=== PATIENT | female | born 1960 | race Caucasian/White ===

== ENCOUNTER → 2016-03-18 | Outpatient (REF) | payer BC | LOC: M LAB REF 08:45 | PROVIDERS: ATTEND Family Medicine | DX: K52.9 Noninfective gastroenteritis and colitis, unspecified (principal) ==

== ENCOUNTER → 2017-02-11 | Outpatient (CLI) | payer BC ==
[2017-02-11 07:16] LABS: MEAN CORPUSCULAR HEMOGLOBIN 32.1 pg (27.0-33.0); MEAN CORPUSCULAR HGB CONC 33.2 g/dl (32.0-36.5); MEAN CORPUSCULAR VOLUME 96.9 fl (80.0-96.0); PLATELET COUNT, AUTOMATED 227 10^3/uL (150-450); RED CELL DISTRIBUTION WIDTH 12.4 % (11.5-14.5); WHITE BLOOD COUNT 4.5 10^3/uL (4.0-10.0)
[2017-02-11 07:48] LABS: ALBUMIN 3.9 GM/DL (3.2-5.2); ANION GAP 6 MEQ/L (8-16); BLOOD UREA NITROGEN 9 MG/DL (7-18); CALCIUM LEVEL 8.6 MG/DL (8.5-10.1); CARBON DIOXIDE LEVEL 31 MEQ/L (21-32); CHLORIDE LEVEL 105 MEQ/L (98-107); CREATININE FOR GFR 0.65 MG/DL (0.55-1.02); GLOMERULAR FILTRATION RATE > 60.0 (>51); GLUCOSE, FASTING 92 MG/DL (70-105); MAGNESIUM LEVEL 2.2 MG/DL (1.8-2.4); PHOSPHORUS LEVEL 4.1 MG/DL (2.5-4.9); POTASSIUM SERUM 3.8 MEQ/L (3.5-5.1); SODIUM LEVEL 142 MEQ/L (136-145)
== END ==
LOC: M LAB 06:41
PROVIDERS: ATTEND Physician Assistant
DX: R00.2 Palpitations (principal)

== ENCOUNTER → 2017-04-13 | Outpatient (REF) | payer BC | LOC: M LAB REF 15:51 | DX: Z11.8 Encounter for screening for other infectious and parasitic diseases (principal) | CPT/HCPCS: 87493 ==

== ENCOUNTER → 2017-08-11 | Outpatient (CLI) | payer BC ==
[2017-08-11 06:56] LABS: HEMATOCRIT 39.2 % (36.0-47.0); HEMOGLOBIN 13.3 g/dl (12.0-15.5); MEAN CORPUSCULAR HEMOGLOBIN 31.8 pg (27.0-33.0); MEAN CORPUSCULAR HGB CONC 33.9 g/dl (32.0-36.5); MEAN CORPUSCULAR VOLUME 93.8 fl (80.0-96.0); PLATELET COUNT, AUTOMATED 217 10^3/uL (150-450); RED BLOOD COUNT 4.18 10^6/uL (4.00-5.40); RED CELL DISTRIBUTION WIDTH 12.5 % (11.5-14.5); WHITE BLOOD COUNT 4.8 10^3/uL (4.0-10.0)
[2017-08-11 07:29] LABS: ALBUMIN 3.8 GM/DL (3.2-5.2); ALBUMIN/GLOBULIN RATIO 1.27 (1.00-1.93); ALKALINE PHOSPHATASE 80 U/L (45-117); ALT/SGPT 19 U/L (12-78); ANION GAP 8 MEQ/L (8-16); AST/SGOT 10 U/L (7-37); BILIRUBIN,TOTAL 0.3 MG/DL (0.2-1.0); BLOOD UREA NITROGEN 12 MG/DL (7-18); CALCIUM LEVEL 8.9 MG/DL (8.5-10.1); CARBON DIOXIDE LEVEL 28 MEQ/L (21-32); CHLORIDE LEVEL 108 MEQ/L (98-107); CHOLESTEROL LEVEL 220 MG/DL (<200); CHOLESTEROL RISK RATIO 3.055 (<5); CREATININE FOR GFR 0.79 MG/DL (0.55-1.30); GLOMERULAR FILTRATION RATE > 60.0 (>51); GLUCOSE, FASTING 94 MG/DL (70-100); HDL CHOLESTEROL 72 MG/DL (>40); IRON (FE) 84 UG/DL (50-170); NON-HDL-C 148 MG/DL; PERCENT SATURATION 22.5 % (13.2-45.0); POTASSIUM SERUM 4.1 MEQ/L (3.5-5.1); RHEUMATOID FACTOR QUANT < 10.0 IU/ML (<15.0); SODIUM LEVEL 144 MEQ/L (136-145); TOTAL IRON BINDING CAPACITY 373 UG/DL (250-450); TOTAL PROTEIN 6.8 GM/DL (6.4-8.2); TRIGLYCERIDES LEVEL 130 MG/DL (<150); URIC ACID 4.1 MG/DL (2.6-6.0)
[2017-08-11 07:39] LABS: ERYTHROCYTE SEDIMENTATION RATE 11 mm/hr (0-30)
[2017-08-11 10:05] LABS: VITAMIN B12 LEVEL 294 PG/ML (247-911)
== END ==
LOC: M LAB 06:04
DX: R94.31 Abnormal electrocardiogram [ECG] [EKG] (principal); R53.83 Other fatigue; D64.9 Anemia, unspecified; M85.9 Disorder of bone density and structure, unspecified
CPT/HCPCS: 71046

== ENCOUNTER → 2017-10-12 | Outpatient (CLI) | payer BC ==
[2017-10-12 07:20] LABS: THYROXINE (T4) 8.3 UG/DL (4.5-12.0)
[2017-10-12 09:36] LABS: TOTAL 25(OH) VITAMIN D 69.1 NG/ML (30.0-100.0)
[2017-10-12 09:37] LABS: ESTRADIOL < 19.0 PG/ML
[2017-10-12 09:37] LABS: FOLLICLE STIMULATING HORMONE 136.7 mIU/mL; TOTAL T3 111.6 NG/DL (60.0-181.0)
[2017-10-12 10:15] LABS: VITAMIN B12 LEVEL 342 PG/ML (247-911)
== END ==
LOC: M LAB 06:12
DX: R53.83 Other fatigue (principal)

== ENCOUNTER → 2017-10-19 | Outpatient (CLI) | payer BC | LOC: M RAD 07:21 | DX: Z12.31 Encounter for screening mammogram for malignant neoplasm of breast (principal) | CPT/HCPCS: 77067 ==

== ENCOUNTER → 2018-04-13 | Outpatient (CLI) | payer BC ==
[2018-04-13 06:36] LABS: HEMATOCRIT 41.4 % (36.0-47.0); HEMOGLOBIN 13.9 g/dl (12.0-15.5); MEAN CORPUSCULAR HEMOGLOBIN 31.7 pg (27.0-33.0); MEAN CORPUSCULAR HGB CONC 33.6 g/dl (32.0-36.5); MEAN CORPUSCULAR VOLUME 94.5 fl (80.0-96.0); PLATELET COUNT, AUTOMATED 238 10^3/uL (150-450); RED BLOOD COUNT 4.38 10^6/uL (4.00-5.40); WHITE BLOOD COUNT 4.7 10^3/uL (4.0-10.0)
[2018-04-13 06:59] LABS: ERYTHROCYTE SEDIMENTATION RATE 11 mm/hr (0-30)
[2018-04-13 07:07] LABS: ALT/SGPT 19 U/L (12-78); BILIRUBIN,TOTAL 0.6 MG/DL (0.2-1.0); BLOOD UREA NITROGEN 11 MG/DL (7-18); CALCIUM LEVEL 9.1 MG/DL (8.5-10.1); CARBON DIOXIDE LEVEL 29 MEQ/L (21-32); CHLORIDE LEVEL 106 MEQ/L (98-107); CHOLESTEROL LEVEL 226 MG/DL (<200); CREATININE FOR GFR 0.73 MG/DL (0.55-1.30); GLOMERULAR FILTRATION RATE > 60.0 (>51); GLUCOSE, FASTING 98 MG/DL (70-100); POTASSIUM SERUM 4.1 MEQ/L (3.5-5.1); SODIUM LEVEL 141 MEQ/L (136-145); TRIGLYCERIDES LEVEL 113 MG/DL (<150)
[2018-04-13 07:08] LABS: ALBUMIN 3.9 GM/DL (3.2-5.2); CHOLESTEROL RISK RATIO 3.275 (<5); HDL CHOLESTEROL 69 MG/DL (>40); IRON (FE) 125 UG/DL (50-170); LDL CHOLESTEROL 134 MG/DL (<100); NON-HDL-C 157 MG/DL; PERCENT SATURATION 34.1 % (13.2-45.0); THYROXINE (T4) 9.4 UG/DL (4.5-12.0); TOTAL IRON BINDING CAPACITY 367 UG/DL (250-450); TOTAL PROTEIN 6.6 GM/DL (6.4-8.2)
[2018-04-13 09:41] LABS: TOTAL 25(OH) VITAMIN D 42.6 NG/ML (30.0-100.0)
[2018-04-13 12:16] LABS: VITAMIN B12 LEVEL 355 PG/ML (247-911)
== END ==
LOC: M LAB 06:06
PROVIDERS: ATTEND Family Medicine
DX: D64.9 Anemia, unspecified (principal); R53.83 Other fatigue; E03.9 Hypothyroidism, unspecified

== ENCOUNTER → 2018-07-20 | Outpatient (REF) | payer BC ==
[~2018-07-20] MED LIST: FLON1SPR; PROBCAP14 PO
== END ==
LOC: M SFHCPLAZ 17:31
PROVIDERS: ATTEND Dermatology
DX: D48.5 Neoplasm of uncertain behavior of skin (principal)

== ENCOUNTER → 2018-11-03 | Outpatient (CLI) | payer BC ==
[2018-11-03 07:05] LABS: HEMATOCRIT 41.2 % (36.0-47.0); HEMOGLOBIN 13.6 g/dl (12.0-15.5); MEAN CORPUSCULAR HEMOGLOBIN 31.6 pg (27.0-33.0); MEAN CORPUSCULAR VOLUME 95.6 fl (80.0-96.0); PLATELET COUNT, AUTOMATED 198 10^3/uL (150-450); RED BLOOD COUNT 4.31 10^6/uL (4.00-5.40); WHITE BLOOD COUNT 4.3 10^3/uL (4.0-10.0)
[2018-11-03 07:36] LABS: ALBUMIN 3.9 GM/DL (3.2-5.2); ALT/SGPT 19 U/L (12-78); BILIRUBIN,TOTAL 0.3 MG/DL (0.2-1.0); BLOOD UREA NITROGEN 11 MG/DL (7-18); CARBON DIOXIDE LEVEL 30 MEQ/L (21-32); CHLORIDE LEVEL 109 MEQ/L (98-107); CHOLESTEROL LEVEL 199 MG/DL (<200); CHOLESTEROL RISK RATIO 2.842 (<5); CREATININE FOR GFR 0.68 MG/DL (0.55-1.30); GLOMERULAR FILTRATION RATE > 60.0 (>51); GLUCOSE, FASTING 99 MG/DL (70-100); HDL CHOLESTEROL 70 MG/DL (>40); IRON (FE) 76 UG/DL (50-170); LDL CHOLESTEROL 110 MG/DL (<100); NON-HDL-C 129 MG/DL; PERCENT SATURATION 21.2 % (13.2-45.0); RHEUMATOID FACTOR QUANT < 10.0 IU/ML (<15.0); SODIUM LEVEL 144 MEQ/L (136-145); TOTAL IRON BINDING CAPACITY 358 UG/DL (250-450); TOTAL PROTEIN 6.8 GM/DL (6.4-8.2); TRIGLYCERIDES LEVEL 96 MG/DL (<150)
[2018-11-03 08:30] LABS: LUTEINIZING HORMONE 54.6 mIU/mL; TOTAL 25(OH) VITAMIN D 43.4 NG/ML (30.0-100.0); TOTAL T3 114.5 NG/DL (60.0-181.0)
[2018-11-03 08:31] LABS: ESTRADIOL < 19.0 PG/ML; VITAMIN B12 LEVEL 226 PG/ML (247-911)
[2018-11-03 08:56] LABS: ERYTHROCYTE SEDIMENTATION RATE 10 mm/hr (0-30)
[2018-11-03 11:33] LABS: FOLLICLE STIMULATING HORMONE 112.7 mIU/mL
== END ==
LOC: M LAB 06:25
PROVIDERS: ATTEND Family Medicine
DX: D64.9 Anemia, unspecified (principal); R53.83 Other fatigue

== ENCOUNTER → 2018-11-08 | Outpatient (CLI) | payer BC ==
--- NOTE | 2018-11-08 17:51 | REPMRS ---
Patient History The patient states she had a clinical breast exam in June 2018. Family history of breast cancer at age 68 in mother, colorectal cancer at age 50 or over in father. Benign radio exam breast specimen of the left breast, February 06, 2014. Benign stereotatic loc for ea lesion of the left breast, February 06, 2014. 3D TOMOSYNTHESIS WAS PERFORMED. [facility] lifetime risk for breast cancer is 15.1%. Digital Mammo Screening Bilat: November 08, 2018 - Exam #: [id number] Bilateral CC and MLO view(s) were taken. Technologist: Jazmine Doll, Technologist Prior study comparison: October 19, 2017, bilateral digital mammo screening bilat performed at [facility]. September 04, 2014, left breast digital mammo diagnostic unilateral performed at [facility]. FINDINGS: The breast tissue is heterogeneously dense. This may lower the sensitivity of mammography. There has been no change in the appearance of the mammogram from the prior studies. There is a moderate amount of residual fibroglandular tissue which is fairly symmetric. There is no interval development of dominant mass, areas of architectural distortion, or clustered microcalcification typical of malignancy. Assessment: BI-RADS/ACR category 1 mammogram. Negative Mammogram. Recommendation Routine screening mammogram in 1 year (for women over age 40). This mammogram was interpreted with the aid of an FDA-approved computer-aided dectection system. Electronically Signed By: Patrick Hart MD 11/08/18 [id number]
== END ==
LOC: M RAD 16:08
PROVIDERS: ATTEND Family Medicine
DX: Z12.31 Encounter for screening mammogram for malignant neoplasm of breast (principal)

== ENCOUNTER → 2019-08-01 | Outpatient (REF) | payer BC | LOC: M LAB REF 17:42 | PROVIDERS: ATTEND Dermatology | DX: D49.2 Neoplasm of unspecified behavior of bone, soft tissue, and skin (principal) ==

== ENCOUNTER → 2019-09-24 | Outpatient (CLI) | payer BC ==
[2019-10-28 21:14] LABS: HEMATOCRIT 39.3 % (36.0-47.0); HEMOGLOBIN 12.9 g/dl (12.0-15.5); MEAN CORPUSCULAR HEMOGLOBIN 31.9 pg (27.0-33.0); MEAN CORPUSCULAR HGB CONC 32.8 g/dl (32.0-36.5); MEAN CORPUSCULAR VOLUME 97.3 fl (80.0-96.0); PLATELET COUNT, AUTOMATED 181 10^3/uL (150-450); RED BLOOD COUNT 4.04 10^6/uL (4.00-5.40); WHITE BLOOD COUNT 2.9 10^3/uL (4.0-10.0)
[2019-10-28 21:26] LABS: ERYTHROCYTE SEDIMENTATION RATE 11 mm/hr (0-30)
[2019-10-29 19:19] LABS: HEMOGLOBIN A1c 5.4 %
[2019-10-29 19:20] LABS: ALBUMIN 3.7 GM/DL (3.2-5.2); ALT/SGPT 22 U/L (12-78); BILIRUBIN,TOTAL 0.4 MG/DL (0.2-1.0); BLOOD UREA NITROGEN 10 MG/DL (7-18); CALCIUM LEVEL 8.8 MG/DL (8.5-10.1); CARBON DIOXIDE LEVEL 31 MEQ/L (21-32); CHLORIDE LEVEL 110 MEQ/L (98-107); CHOLESTEROL LEVEL 221 MG/DL (<200); CHOLESTEROL RISK RATIO 2.907 (<5); CREATININE FOR GFR 0.73 MG/DL (0.55-1.30); GLOMERULAR FILTRATION RATE > 60.0 (>51); GLUCOSE, FASTING 94 MG/DL (70-100); HDL CHOLESTEROL 76 MG/DL (>40); IRON (FE) 77 UG/DL (50-170); LDL CHOLESTEROL 132 MG/DL (<100); NON-HDL-C 145 MG/DL; PERCENT SATURATION 23.5 % (13.2-45.0); POTASSIUM SERUM 3.9 MEQ/L (3.5-5.1); SODIUM LEVEL 144 MEQ/L (136-145); TOTAL 25(OH) VITAMIN D 83.6 NG/ML (30.0-100.0); TOTAL IRON BINDING CAPACITY 328 UG/DL (250-450); TOTAL PROTEIN 6.7 GM/DL (6.4-8.2); TRIGLYCERIDES LEVEL 63 MG/DL (<150)
== END ==
LOC: M LAB 08:30
PROVIDERS: ATTEND Family Medicine
DX: D64.9 Anemia, unspecified (principal); R53.83 Other fatigue; E03.9 Hypothyroidism, unspecified

== ENCOUNTER → 2019-09-26 | Outpatient (REF) | payer BC ==
[2019-11-21 13:33] LABS: CLOSTRIDIUM DIFFICILE PCR NEGATIVE (NEGATIVE)
== END ==
LOC: M LAB REF 15:26
PROVIDERS: ATTEND Family Medicine
DX: D64.9 Anemia, unspecified (principal); R53.83 Other fatigue; E03.9 Hypothyroidism, unspecified

== ENCOUNTER → 2019-12-19 | Outpatient (REF) | payer BC | LOC: M LAB REF 12:16 | PROVIDERS: ATTEND Internal Medicine Gastroenterology | DX: R19.4 Change in bowel habit (principal); R10.9 Unspecified abdominal pain; R14.3 Flatulence ==

== ENCOUNTER → 2020-03-29 | Outpatient (CLI) | payer BC | LOC: M LABSMTC 10:27 | PROVIDERS: ATTEND Anesthesiology | DX: Z01.812 Encounter for preprocedural laboratory examination (principal); Z20.822 Contact with and (suspected) exposure to COVID-19 ==

== ENCOUNTER 2020-04-03 07:39 | Day surgery (SDC) | payer BC ==
[~2020-04-03] VITALS: Ht 160 cm; Wt 47.2 kg
[~2020-04-03 07:39] MED LIST changes: +LIDOCAINE 2% 100MG/5ML SDV (FOR ANES.) As Ordered ONE; +NS 1,000 ML IV ONE; +propofoL 200 MG/20 ML VIAL As Ordered ONE
--- OUTSIDE RECORDS SUMMARY | 2020-04-03 07:44 | CCD | Continuity of Care Document ---
Author Author Elvia THORNE Organization Unknown Address [address] [place] [address] Phone [phone] Problems Active Problems Provider Date Gastroesophageal reflux disease Ginette Thorne MD Onset: 1 Chronic interstitial cystitis Ginette Thorne MD Onset: 11/2011 Social History Type Date Description Comments Sex Unknown Tobacco Use Start: Unknown End: Unknown Quit Smoking Status Reviewed: 03/17/19 Quit ETOH Use Non-smoker, Occasional Drinker, Non-drug User Tobacco Use Start: Unknown Patient has never smoked Exercise Type/Frequency Exercises regularly Allergies, Adverse Reactions, Alerts Active Allergies Reaction Severity Comments Date PCN 10/29/2005 Morphine side effect- BP too low 08/2005 Adhesives 10/15/2017 Medications Active Medications SIG Qnty Indications Ordering Provide r Date Prempro 0.625-2.5mg Tablets 1 by mouth every day 90tabs N95.8 Ginette Thorne MD 10/15/2017 Flonase 50mcg/[place] Suspension Unknown Immunizations Description No Information Available Vital Signs Date Vital Result Comment 03/22/2020 2:36pm BP Systolic 106 mmHg BP Diastolic 64 mmHg Height 62 inches 5'2" Weight 103.00 lb BMI (Body Mass Index) 18.8 kg/m2 BSA (Body Surface Area) 1.44 m2 03/17/2019 2:54pm BP Systolic 108 mmHg BP Diastolic 62 mmHg Height 62.25 inches 5'2.25" Weight 103.00 lb BMI (Body Mass Index) 18.7 kg/m2 BSA (Body Surface Area) 1.45 m2 Results Description No Information Available Procedures Description No Information Available Medical Devices Description No Information Available Encounters Description No Information Available Assessments Date Code Description Provider 03/22/2020 Z01.419 Encounter for gyneco logical examination (general) (routine) without abnormal findings Ginette Thorne MD 03/22/2020 N95.2 Postmenopausal atrophic vaginiti s Ginette Thorne MD 03/22/2020 N95.8 Other specified menopausal and p erimenopausal disorders Ginette Thorne MD 03/22/2020 Z12.4 Encounter for screening for partha gnant neoplasm of cervix Ginette Thorne MD 03/22/2020 Z12.39 Encounter for other screening for malignant neoplasm of breast Ginette Thorne MD Plan of Treatment Future Appointment(s):* 03/31/2021 2:45 pm - Ginette Thorne MD 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 03/22/2020 - Ginette Thorne MD* Z01.419 Encounter for gynecological examination (general) (routine) without abnormal findings * N95.2 Postmenopausal atrophic vaginitis * N95.8 Other specified menopausal and perimenopausal disorders * Z12.4 Encounter for screening for malignant neoplasm of cervix* New Labs:* Thinprep W/Reflex HR HPV If Asc-US, Ordered: 03/22/20 * Z12.39 Encounter for other screening for malignant neoplasm of breast* New Xrays:* Mammography, Screening, Bilateral, Ordered: 03/22/20 Functional Status Description No Information Available Mental Status Description No Information Available Referrals Description No Information Available
--- OUTSIDE RECORDS SUMMARY | 2020-04-03 07:44 | CCD | Continuity of Care Document ---
Author Author Elvia THORNE Organization Unknown Address [address] [place] [address] Phone [phone] Problems Active Problems Provider Date Gastroesophageal reflux disease Ginette Thorne MD Onset: 1 Chronic interstitial cystitis Ginette Thorne MD Onset: 11/2011 Social History Type Date Description Comments Sex Unknown Tobacco Use Start: Unknown End: Unknown Quit Smoking Status Reviewed: 03/22/20 Quit ETOH Use Non-smoker, Occasional Drinker, Non-drug [...] 90tabs N95.8 Ginette Thorne MD 10/15/2017 Flonase 50mcg/[place] Suspension Unknown Immunizations Description No Information Available [...] Medical Devices Description No Information Available Encounters Type Date Location Provider Dx Diagnosis Office Visit 03/22/2020 2:30p [place] [employer] Ginette Thorne MD Z0 1.419 Encntr for contracting officer exam (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
--- OUTSIDE RECORDS SUMMARY | 2020-04-03 07:44 | CCD | Continuity of Care Document ---
Author Author Elvia BRAUN MD Organization Unknown Address [address] [place] [address] Phone [phone] Care Team Providers Care Professional Development Director Name Role Phone Jose De Leon M.D. AUTM [phone] Problems Description No Information Available Social History Type Date Description Comments Sex Unknown ETOH Use Occasionally consumes alcohol Tobacco Use Start: Unknown quit in 1996 smoked 1/2ppd fo r 14 years Recreational Drug Use Denies Drug Use Allergies, Adverse Reactions, Alerts Active Allergies Reaction Severity Comments Date Penicillin shortness of breath, rash Morphine low blood pressure 4 Medications Active Medications SIG Qnty Indications Ordering Provide r Date Flonase 50mcg/[place] Suspension 2 sprays per nostril daily 3bottles Unknown Probiotic Capsules 1 by mouth every day Unknown Vitamin D 2000Unit Tablets 2 by mouth every day Unknown Immunizations Description No Information Available Vital Signs Date Vital Result Comment 03/14/2020 10:34am BP Systolic 123 mmHg BP Diastolic 81 mmHg Height 63 inches 5'3" Weight 105.00 lb BMI (Body Mass Index) 18.6 kg/m2 [place] Body Weight 115 lb Weight 47.628 kg BSA (Body Surface Area) 1.47 m2 09/25/2019 1:23pm BP Systolic 116 mmHg BP Diastolic 60 mmHg Height 63 inches 5'3" Weight 103.00 lb BMI (Body Mass Index) 18.2 kg/m2 [place] Body Weight 115 lb Weight 46.721 kg BSA (Body Surface Area) 1.46 m2 Results Description No Information Available Procedures Description No Information Available Medical Devices Description No Information Available Encounters Type Date Location Provider Dx Diagnosis Office Visit 09/25/2019 11:30a [facility] Pollo bynum, CANDE R19.7 Diarrhea, unspecified Z80.0 Family history of malignant neoplasm of digestive organs Assessments Date Code Description Provider 09/25/2019 R19.7 Diarrhea, unspecified 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
--- OUTSIDE RECORDS SUMMARY | 2020-04-03 07:45 | CCD ---
Author Author [facility] Organization [facility] Address Unknown Phone Unavailable Care Team Providers Care Commercial Light Fixture Assembler Name Role Phone Shanae Hernandez Unavailable Unavailable Shanae Hernandez Unavailable Unavailable Shanae Hernandez Unavailable Unavailable Shanae Hernandez Unavailable Unavailable Shanae Hernandez Unavailable Unavailable Shanae Hernandez Unavailable Unavailable Shanae Hernandez Unavailable Unavailable Shanae Hernandez Unavailable Unavailable HERNANDESDavid MD Unavailable Unavailable HERNANDESDavid MD Unavailable Unavailable HERNANDES E ARMANDO RAYMOND Unavailable Unavailable HERNANDES E ARMANDO RAYMOND Unavailable Unavailable HERNANDES E ARMANDO RAYMOND Unavailable Unavailable HERNANDES E ARMANDO RAYMOND Unavailable Unavailable HERNANDES E ARMANDO RAYMOND Unavailable Unavailable HERNANDES E ARMANDO RAYMOND Unavailable Unavailable HERNANDES E ARMANDO RAYMOND Unavailable Unavailable HERNANDES E ARMANDO RAYMOND Unavailable Unavailable HERNANDES E ARMANDO RAYMOND Unavailable Unavailable HERNANDES E ARMANDO RAYMOND Unavailable Unavailable HERNANDES E ARMANDO RAYMOND Unavailable Unavailable HERNANDES E ARMANDO RAYMOND Unavailable Unavailable HERNANDES E ARMANDO RAYMOND Unavailable Unavailable HERNANDES E ARMANDO RAYMOND Unavailable Unavailable HERNANDES E ARMANDO RAYMOND Unavailable Unavailable HERNANDES E ARMANDO RAYMOND Unavailable Unavailable HERNANDES E ARMANDO RAYMOND Unavailable Unavailable HERNANDES E ARMANDO RAYMOND Unavailable Unavailable HERNANDES E ARMANDO RAYMOND Unavailable Unavailable HERNANDES E ARMANDO RAYMOND Unavailable Unavailable HERNANDES E ARMANDO RAYMOND Unavailable Unavailable HERNANDES E ARMANDO RAYMOND Unavailable Unavailable HERNANDES E ARMANDO RAYMOND Unavailable Unavailable HERNANDES E ARMANDO RAYMOND Unavailable Unavailable HERNANDES E ARMANDO RAYMOND Unavailable Unavailable HERNANDES E ARMANDO RAYMOND Unavailable Unavailable HERNANDES E ARMANDO RAYMOND Unavailable Unavailable HERNANDES E ARMANDO RAYMOND Unavailable Unavailable HERNANDES E ARMANDO RAYMOND Unavailable Unavailable HERNANDESDavid MD Unavailable Unavailable HERNANDESDavid MD Unavailable Unavailable HERNANDES E ARMANDO RAYMOND Unavailable Unavailable HRENANDES E ARMANDO RAYMOND Unavailable Unavailable HERNANDES E ARMANDO RAYMOND Unavailable Unavailable HERNANDES E ARMANDO RAYMOND Unavailable Unavailable HERNANDES E ARMANDO RAYMOND Unavailable Unavailable HERNANDES E ARMANDO RAYMOND Unavailable Unavailable HERNANDESDavid MD Unavailable Unavailable HERNANDES E ARMANDO RAYMOND Unavailable Unavailable HERNANDESDavid MD Unavailable Unavailable HERNANDESDavid MD Unavailable Unavailable HERNANDES E ARMANDO RAYMOND Unavailable Unavailable David HERNANDES MD Unavailable Unavailable HERNANDESDavid Nava MD Unavailable Unavailable HERNANDESDavid MD Unavailable Unavailable David HERNANDES MD Unavailable Unavailable HERNANDESDavid MD Unavailable Unavailable HERNANDESDavid MD Unavailable Unavailable David HERNANDES MD Unavailable Unavailable David HERNANDES MD Unavailable Unavailable HERNANDES E ARMANDO RAYMOND Unavailable Unavailable HERNANDESDaivd MD Unavailable Unavailable HERNANDESDavid MD Unavailable Unavailable HERNANDESDavid MD Unavailable Unavailable David HERNANDES MD Unavailable Unavailable Suhas DIAZ MD Unavailable Unavailable Suhas DIAZ MD Unavailable Unavailable Suhas DIAZ MD Unavailable Unavailable Suhas DIAZ MD Unavailable Unavailable DIAZ, Suhas BRANDT MD Unavailable Unavailable DIAZ, Suhas BRANDT MD Unavailable Unavailable DIAZ, Suhas BRANDT MD Unavailable Unavailable DIAZ, Suhas BRANDT MD Unavailable Unavailable DIAZ, Suhas BRANDT MD Unavailable Unavailable DIAZ, Suhas BRANDT MD Unavailable Unavailable DIAZ, Suhas BRANDT MD Unavailable Unavailable DIAZ, Suhas BRANDT MD Unavailable Unavailable DIAZ, Suhas BRANDT MD Unavailable Unavailable DIAZ, Suhas BRANDT MD Unavailable Unavailable DIAZ, Suhas BRANDT MD Unavailable Unavailable DIAZ, Suhas BRANDT MD Unavailable Unavailable DIAZ, Suhas BRANDT MD Unavailable Unavailable DIAZ, Suhas BRANDT MD Unavailable Unavailable DIAZ, Suhas BRANDT MD Unavailable Unavailable DIAZ, Suhas BRANDT MD Unavailable Unavailable DIAZ, L KARLY RAYMOND Unavailable Unavailable DIAZ, L KARLY RAYMOND Unavailable Unavailable DIAZ, L KARLY RAYMOND Unavailable Unavailable DIAZ, L KARLY RAYMOND Unavailable Unavailable DIAZ, Suhas BRANDT MD Unavailable Unavailable DIAZ, L KARLY RAYMOND Unavailable Unavailable DIAZ, L KARLY RAYMOND Unavailable Unavailable DIAZ, L KARLY RAYMOND Unavailable Unavailable DIAZ, L KARLY RAYMOND Unavailable Unavailable DIAZ, L KARLY RAYMOND Unavailable Unavailable DIAZ, L KARLY RAYMOND Unavailable Unavailable DIAZ, Suhas BRANDT MD Unavailable Unavailable DIAZ, L KARLY RAYMOND Unavailable Unavailable DIAZ, L KARLY RAYMOND Unavailable Unavailable DIAZ, L KARLY RAYMOND Unavailable Unavailable DIAZ, Suhas BRANDT MD Unavailable Unavailable DIAZ, L KARLY RAYMOND Unavailable Unavailable DIAZ, Suhas BRANDT MD Unavailable Unavailable DIAZ, Suhas BRANDT MD Unavailable Unavailable DIAZ, L KARLY RAYMOND Unavailable Unavailable DIAZ, Suhas BRANDT MD Unavailable Unavailable DIAZ, Suhas BRANDT MD Unavailable Unavailable DIAZ, Suhas BRANDT MD Unavailable Unavailable EZRA (PRIYANKA), Kj HERNANDEZ MD Unavailable Unavailab le EZRA (PRIYANKA), Kj HERNANDEZ MD Unavailable Unavailab le EZRA (PRIYANKA), Kj HERNANDEZ MD Unavailable Unavailab le EZRA (PRIYANKA), Kj HERNANDEZ MD Unavailable Unavailab le EZRA (PRIYANKA), Kj HERNANDEZ MD Unavailable Unavailab le EZRA (PRIYANKA), Kj HERNANDEZ MD Unavailable Unavailab le EZRA (PRIYANKA), Kj HERNANDEZ MD Unavailable Unavailab le EZRA (PRIYANKA), Kj HERNANDEZ MD Unavailable Unavailab le EZRA (PRIYANKA), Kj HERNANDEZ MD Unavailable Unavailab le EZRA (PRIYANKA), Kj HERNANDEZ MD Unavailable Unavailab le EZRA (PRIYANKA), Kj HERNANDEZ MD Unavailable Unavailab le EZRA (PRIYANKA), Kj HERNANDEZ MD Unavailable Unavailab le EZRA (PRIYANKA), Kj HERNANDEZ MD Unavailable Unavailab le EZRA (PRIYANKA), Kj HERNANDEZ MD Unavailable Unavailab le EZRA (PRIYANKA), Kj HERNANDEZ MD Unavailable Unavailab le EZRA (PRIYANKA), Kj HERNANDEZ MD Unavailable Unavailab le EZRA (PRIYANKA), Kj HERNANDEZ MD Unavailable Unavailab le EZRA (PRIYANKA), Kj HERNANDEZ MD Unavailable Unavailab le EZRA (PRIYANKA), Kj HERNANDEZ MD Unavailable Unavailab le EZRA (PRIYANKA), Kj HERNANDEZ MD Unavailable Unavailab le EZRA (PRIYANKA), Kj HERNANDEZ MD Unavailable Unavailab le EZRA (PRIYANKA), Kj HERNANDEZ MD Unavailable Unavailab le EZRA (PRIYANKA), Kj HERNANDEZ MD Unavailable Unavailab le EZRA (PRIYANKA), Kj HERNANDEZ MD Unavailable Unavailab le EZRA (PRIYANKA), Kj HERNANDEZ MD Unavailable Unavailab le EZRA (PRIYANKA), Kj HERNANDEZ MD Unavailable Unavailab le EZRA (PRIYANKA), Kj HERNANDEZ MD Unavailable Unavailab le EZRA (PRIYANKA), Kj HERNANDEZ MD Unavailable Unavailab le EZRA (PRIYANKA), Kj HERNANDEZ MD Unavailable Unavailab le EZRA (PRIYANKA), Kj HERNANDEZ MD Unavailable Unavailab le EZRA (PRIYANKA), Kj HERNANDEZ MD Unavailable Unavailab le EZRA (PRIYANKA), Kj HERNANDEZ MD Unavailable Unavailab le EZRA (PRIYANKA), Kj HERNANDEZ MD Unavailable Unavailab le EZRA (PRIYANKA), Kj HERNANDEZ MD Unavailable Unavailab le EZRA (PRIYANKA), Kj HERNANDEZ MD Unavailable Unavailab le EZRA (PRIYANKA), Kj HERNANDEZ MD Unavailable Unavailab le EZRA (PRIYANKA), Kj HERNANDEZ MD Unavailable Unavailab le EZRA (PRIYANKA), Kj HERNANDEZ MD Unavailable Unavailab le EZRA (PRIYANKA), Kj HERNANDEZ MD Unavailable Unavailab le EZRA (PRIYANKA), Kj HERNANDEZ MD Unavailable Unavailab le EZRA (PRIYANKA), Kj HERNANDEZ MD Unavailable Unavailab le EZRA (PRIYANKA), Kj HERNANDEZ MD Unavailable Unavailab le EZRA (PRIYANKA), Kj HERNANDEZ MD Unavailable Unavailab le EZRA (PRIYANKA), Kj HERNANDEZ MD Unavailable Unavailab le EZRA (PRIYANKA), Kj HERNANDEZ MD Unavailable Unavailab le EZRA (PRIYANKA), Kj HERNANDEZ MD Unavailable Unavailab le EZRA (PRIYANKA), Kj HERNANDEZ MD Unavailable Unavailab le EZRA (PRIYANKA), Kj HERNANDEZ MD Unavailable Unavailab le EZRA (PRIYANKA), Kj HERNANDEZ MD Unavailable Unavailab le EZRA (PRIYANKA), Kj HERNANDEZ MD Unavailable Unavailab le EZRA (PRIYANKA), Kj HERNANDEZ MD Unavailable Unavailab le EZRA (PRIYANKA), Kj HERNANDEZ MD Unavailable Unavailab le EZRA (PRIYANKA), Kj HERNANDEZ MD Unavailable Unavailab le EZRA (PRIYANKA), Kj HERNANDEZ MD Unavailable Unavailab le EZRA (PRIYANKA), Kj HERNANDEZ MD Unavailable Unavailab le EZRA (PRIYANKA), Kj HERNANDEZ MD Unavailable Unavailab le EZRA (PRIYANKA), Kj HERNANDEZ MD Unavailable Unavailab le EZRA (PRIYANKA), Kj HERNANDEZ MD Unavailable Unavailab le EZRA (PRIYANKA), Kj HERNANDEZ MD Unavailable Unavailab le EZRA (PRIYANKA), Kj HERNANDEZ MD Unavailable Unavailab le EZRA (PRIYANKA), Kj HERNANDEZ MD Unavailable Unavailab le EZRA (PRIYANKA), Kj HERNANDEZ MD Unavailable Unavailab le EZRA (PRIYANKA), Kj HERNANDEZ MD Unavailable Unavailab le EZRA (PRIYANKA), Kj HERNANDEZ MD Unavailable Unavailab le EZRA (PRIYANKA), Kj HERNANDEZ MD Unavailable Unavailab le EZRA (PRIYANKA), Kj HERNANDEZ MD Unavailable Unavailab le EZRA (PRIYANKA), Kj HERNANDEZ MD Unavailable Unavailab le EZRA (PRIYANKA), Kj HERNANDEZ MD Unavailable Unavailab le EZRA (PRIYANKA), Kj HERNANDEZ MD Unavailable Unavailab le EZRA (PRIYANKA), Kj HERNANDEZ MD Unavailable Unavailab le EZRA (PRIYANKA), Kj HERNANDEZ MD Unavailable Unavailab le EZRA (PRIYANKA), Kj HERNANDEZ MD Unavailable Unavailab le EZRA (PRIYANKA), Kj HERNANDEZ MD Unavailable Unavailab le EZRA (PRIYANKA), Kj HERNANDEZ MD Unavailable Unavailab le EZRA (PRIYANKA), Kj HERNANDEZ MD Unavailable Unavailab le EZRA (PRIYANKA), Kj HERNANDEZ MD Unavailable Unavailab le EZRA (PRIYANKA), Kj HERNANDEZ MD Unavailable Unavailab le EZRA (PRIYANKA), Kj HERNANDEZ MD Unavailable Unavailab le EZRA (PRIYANKA), Kj HERNANDEZ MD Unavailable Unavailab le EZRA (PRIYANKA), Kj HERNANDEZ MD Unavailable Unavailab le EZRA (PRIYANKA), Kj HERNANDEZ MD Unavailable Unavailab le EZRA (PRIYANKA), Kj HERNANDEZ MD Unavailable Unavailab le EZRA (PRIYANKA), Kj HERNANDEZ MD Unavailable Unavailab le EZRA (PRIYANKA), Kj HERNANDEZ MD Unavailable Unavailab le EZRA (PRIYANKA), Kj HERNANDEZ MD Unavailable Unavailab le EZRA (PRIYANKA), Kj HERNANDEZ MD Unavailable Unavailab le EZRA (PRIYANKA), Kj HERNANDEZ MD Unavailable Unavailab le EZRA (PRIYANKA), Kj HERNANDEZ MD Unavailable Unavailab le EZRA (PRIYANKA), Kj HERNANDEZ MD Unavailable Unavailab le EZRA (PRIYANKA), Kj HERNANDEZ MD Unavailable Unavailab le EZRA (PRIYANKA), Kj HERNANDEZ MD Unavailable Unavailab le EZRA (PRIYANKA), Kj HERNANDEZ MD Unavailable Unavailab le EZRA (PRIYANKA), Kj HERNANDEZ MD Unavailable Unavailab le Re-disclosure Warning The records that you are about to access may contain information from federally-assisted alcohol or drug abuse programs. If such information is present, then the following federally mandated warning applies: This information has been disclosed to you from records protected by federal confidentiality rules (42 CFR part 2). The federal rules prohibit you from making any further disclosure of this information unless further disclosure is expressly permitted by the written consent of the person to whom it pertains or as otherwise permitted by 42 CFR part 2. A general authorization for the release of medical or other information is NOT sufficient for this purpose. The Federal rules restrict any use of the information to criminally investigate or prosecute any alcohol or drug abuse patient.The records that you are about to access may contain highly sensitive health information, the redisclosure of which is protected by Article 27-F of the [facility] Public Health law. If you continue you may have access to information: Regarding HIV / AIDS; Provided by facilities licensed or operated by the [facility] Office of Mental Health; or Provided by the [facility] Office for People With Developmental Disabilities. If such information is present, then the following [facility] mandated warning applies: This information has been disclosed to you from confidential records which are protected by state law. State law prohibits you from making any further disclosure of this information without the specific written consent of the person to whom it pertains, or as otherwise permitted by law. Any unauthorized further disclosure in violation of state law may result in a fine or shelter sentence or both. A general authorization for the release of medical or other information is NOT sufficient authorization for further disc losure. 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) Attender: DAVID ASHRAF) MDReferrer: Greg HERNANDES MD 01/30/2020 08:20:12 PM EST [facility] Attender: DAVID MUNGUIA ([place]) MDReferrer: Greg HERNANDES MD 12/22/2019 08:20:10 PM EDT [facility] Attender: DAVID ASHRAF) MDReferrer: Greg HERNANDES MD 12/22/2019 08:20:10 PM EDT [facility] Attender: DAVID ASHRAF) MDReferrer: Greg HERNANDES MD 12/12/2019 08:20:10 PM EDT [facility] Attender: DAVID ASHRAF) MDReferrer: Greg HERNANDES MD 12/12/2019 08:20:10 PM EDT [facility] Outpatient Attender: Pollo Hdz/Owen/Sin/Lynn 09/25/2019 11:30:00 AM EDT MED[facility] ([facility] D[facility]ology Center [address] [place] [phone] 08/01/2019 12:00:00 AM EDT eCW1 ([facility]) [facility] [place] [address] [place] [address], [facility] [phone] 07/13/2019 12:00:00 AM EDT eCW1 ([facility]) [facility] Dermatology Center [address] [place] [phone] 04/13/2019 12:00:00 AM EST eCW1 ([facility]) Medications Medication Brand Name Start Date Product Form Dose Route Admi nistrative Instructions Pharmacy Instructions Status Indications Reaction Description Data Source(s) 17.5-3.13-1.6 gram 03/29/2020 12:00:00 AM EST recon soln 354 DIRECTED DIRECTED SOLD: 04/01/2020 [facility] 0.625-2.5 mg 03/23/2020 12:00:00 AM EST tablet 28 TAKE ONE TABLET BY MOUTH EVERY DAY TAKE ONE TABLET BY MOUTH EVERY DAY SOLD: 04/01/2020 [facility] 0.12 % 02/06/2020 12:00:00 AM EST mouthwash 473 SWISH AND SPIT FOR 30 SECONDS WITH 15ML (1 CAPFUL) BY MOUTH TWO TIMES A DAY AFTER BRUSHING TEETH SWISH AND SPIT FOR 30 SECONDS WITH 15ML (1 CAPFUL) BY MOUTH TWO TIMES A DAY AFTER BRUSHING TEETH SOLD: 02/06/2020 [facility] 50 mcg/actuation 11/16/2019 12:00:00 AM EDT spray,suspension 16 SPRAY 1 SPRAY IN EACH NOSTRIL ONCE DAILY SPRAY 1 SPRAY IN EACH NOSTRIL ONCE DAILY SOLD: 01/09/2020 [facility] 50 mcg/actuation 11/16/2019 12:00:00 AM EDT spray,suspension 16 SPRAY 1 SPRAY IN EACH NOSTRIL ONCE DAILY SPRAY 1 SPRAY IN EACH NOSTRIL ONCE DAILY SOLD: 11/18/2019 [facility] 50 mcg/actuation 11/16/2019 12:00:00 AM EDT spray,suspension 16 SPRAY 1 SPRAY IN EACH NOSTRIL ONCE DAILY SPRAY 1 SPRAY IN EACH NOSTRIL ONCE DAILY SOLD: 02/23/2020 [facility] 20 mg 06/30/2019 12:00:00 AM EDT tablet 90 TAKE ONE TABLET BY MOUTH THREE TIMES A DAY TAKE ONE TABLET BY MOUTH THREE TIMES A DAY SOLD: 07/08/2019 [facility] 250 mg 05/23/2019 12:00:00 AM EDT tablet 6 TAKE TWO TABLETS BY MOUTH AT ONCE ON THE FIRST DAY THEN TAKE ONE DAILY THEREAFTER TAKE TWO TABLETS BY MOUTH AT ONCE ON THE FIRST DAY THEN TAKE ONE DAILY THEREAFTER SOLD: 05/26/2019 [facility] 0.75 % 05/12/2019 12:00:00 AM EDT lotion 59 APPLY ON FACE AT BEDTIME APPLY ON FACE AT BEDTIME SOLD: 02/10/2020 [facility] 0.75 % 05/12/2019 12:00:00 AM EDT lotion 59 APPLY ON FACE AT BEDTIME APPLY ON FACE AT BEDTIME SOLD: 05/13/2019 [facility] 0.625-2.5 mg 03/17/2019 12:00:00 AM EST tablet 28 TAKE ONE TABLET BY MOUTH EVERY DAY TAKE ONE TABLET BY MOUTH EVERY DAY SOLD: 03/20/2019 [facility] 50 mcg/actuation 12/09/2018 12:00:00 AM EDT spray,suspension 16 USE 1 SPRAY IN EACH NOSTRIL ONCE DAILY USE 1 SPRAY IN EACH NOSTRIL ONCE DAILY SOLD: 07/08/2019 [facility] 50 mcg/actuation 12/09/2018 12:00:00 AM EDT spray,suspension 16 USE 1 SPRAY IN EACH NOSTRIL ONCE DAILY USE 1 SPRAY IN EACH NOSTRIL ONCE DAILY SOLD: 05/12/2019 [facility] 50 mcg/actuation 12/09/2018 12:00:00 AM EDT spray,suspension 16 USE 1 SPRAY IN EACH NOSTRIL ONCE DAILY USE 1 SPRAY IN EACH NOSTRIL ONCE DAILY SOLD: 03/20/2019 [facility] 50 mcg/actuation 12/09/2018 12:00:00 AM EDT spray,suspension 16 USE 1 SPRAY IN EACH NOSTRIL ONCE DAILY USE 1 SPRAY IN EACH NOSTRIL ONCE DAILY SOLD: 08/18/2019 [facility] 50 mcg/actuation 12/09/2018 12:00:00 AM EDT spray,suspension 16 USE 1 SPRAY IN EACH NOSTRIL ONCE DAILY USE 1 SPRAY IN EACH NOSTRIL ONCE DAILY SOLD: 09/26/2019 [facility] Insurance Providers Payer name Policy type / Coverage type Policy ID Covered alliance party ID Covered alliance party's relationship to headley Policy [place] Plan Information [employer] [place] 332/834 [id number] SP [id number] [place] 332/834 [id number] SP [id number] [facility] OUT OF STATE ALL [id number] ANTHEM [facility] MEDICARE [id number] [place] P[place] 302/307 [id number] SP [id number] [place] 302/307 [id number] SP [id number] ANSI-Commercial [id number] ANSI-Commercial [id number] [place] 332/834 [id number] SP [id number] BCBS [place] [facility] 303/803 [id number] SP [id number] BS Of [place] Commercial [id number] Self [id number] [facility] [id number] Self [id number] BC/BS [place] [facility] Health Maintenance Organization (HMO) [id number] Self [id number] BS Of [place] [facility] [id number] Self [id number] BCBS [place] Commercial [id number] Self [id number] [place] [employer] Part B [id number] Self [id number] [place] Part B [id number] Self [id number] BCBS [employer] [place] Commercial [id number] Self [id number] BS [place] Commercial [id number] Self [id number] EXCE[place] BCBS B [id number] S [id number] [employer] [place] 332/834 [id number] SP [id number] BS Of [place] [facility] [id number] Self [id number] [place] 332/834 [id number] SP [id number] EXCE[place] BCBS B [id number] S [id number] [place] Commercial Self [place] BC/[place] Med[place] Part B Self [place] BC/BS Medigap Part B Self [place] BCBS Commercial Self [place] 332/834 [id number] SP [id number] SELF PAY UNAVAILABLE SP UNAVAILA BLE Surgeries/Procedures Procedure Description Date Indications Data Source(s) DESTRUCT B9 LESION 1-14 04/13/2019 12:00:00 AM EST eCW1 ([facility]) Results ID Date Data Source [id number] 03/29/2020 09:30:00 AM EST [facility] Name Value Range Interpretation Code Description Data Gayle rce(s) Supporting Document(s) SARS coronavirus 2 RNA Not Detected [facility] This lab was ordered by [facility] and reported by [facility]. ID Date Data Source [id number] 03/19/2020 10:15:00 AM EST [facility] Name Value Range Interpretation Code Description Data Gayle rce(s) Supporting Document(s) Follow Up [facility] XPDIYc1dJmUCReSaBUTpEsnNQZdnRIyvYAIzF7I0FXmpFl5QEIsnvnOdIGTjRs7+LSLgZM5mlx7fMBYx gMy 3mCSQbCbxeR7StNWMdh72UHIOwWBwDKpLxTwGyCFN7UDrdPSPiNPH3SdDcSnxhFT2nIFF6MMHaLKlqWK DnFHJmZzE0ZYZqGu0uNUbfMDwyYr6QLQ9fl0HtCAKlAMBmRknDCKcsXBszXQVpHKRxUWYzE784uoMjAB 5KnOHkUKr7FFKeRfQ3BEOjSoR6FEDcJmMdVqWzKAEn B4Big418gyUqqpA7RW8KG5OjSVR0MBb1F6xxHeCuRJZcOQXlFJ3xUdK4OKZtNk0TkVhvBANbRGDhFr9I nXt8VWB5LMUzTk4+Pj4+Og7lytRjUufCOXAnLB3vkq12SU2GaPViJG9VUTtvW50qGBkoHr27YHtcWSNd PdUhTJj2Uj3cXlLua0SbS4WeJAb4U3xPLrgbY8AuJU slVQ4kLDY7KCTiIh4+Qy0qGAHzTB42RTAfOGNFW6NifoUngpHxKTe6RGVkPy4+Nj4zbmHnYvwLYKOfRJ 8xio93OP7BPQ5yuFfvTeY3XVLwI32szDXtQ9irLxOgO6KhsDevARXbFH6wY2DxAIdoNXQzOR6fxjUecR 7BuAw0RZQbEh8NxBC5WAHnC52zXSVjBXEENWHhl2Av SI4Is5ofpdYbAUKiZM1KDVUxM3IWR9KdU6jkpNfwXRQxHI4GDFpsrOUwJEb2XI0DtIKkCSGnK14uuL0z JC50IAr+NmU2oeUopH7SxNxnbAJRCW0h4ex0MwciLjSctSEWUMKENhjONQdbUQElJuBLGlaUn6q0tlqc CWVOyX3q4Tn/z0F898vb6e69dg2X3H04CW6Eyw4xi7 [file] Pneumatic Tube Operator+0fyNLYlsyBJUA9F8ArHXqvy5LTwcLVQfkwz6UH [file] [facility]/QgHdc1QFmtVkBCPNe0uPBO2XQ9kHBjl5WxeQwhUwvIw1/7kgb26SXz/E/F3kQoGadMUGqFKiPD4r [file] emg technician/gRRUG59+Q2qLQHu5ldwlLcmGr4PL3tzv4jFXATZfzHbEzUCl2jYHsfhmsrLt9CHeKo0j6VtlqXl+6 [file] MOdBnjFHOQIXd2WS/studio associate+bwLMuk9U7qjn+z30E+GaSZyFtfuLDs//xAclJ6IUxI9Obl/av7Qbdne70X8E [file] QQAb96Fpqr4vpFdsFaboRCgKPdxewTk/emg technician/BEaaeWb [file] 1JX8Z/yhy9+RRpl2853A+studio associate+/EQ94kl8JsGEfeE641mqOaiBoD3cdOubVerBPim+TxJ6rD3gdfP7EDJG [file] iATBR3YWyk5r00lRGEN5UgQkx5XcYW5R8tctHS9j6QyEYTRFWDK3HK5Eyp4PhF/MARIA DE JESUS+sf2Ru0jDoF0KO [file] implementation specialist [file] plaster maker/vZLzKOL9WqfxgXLnbd7Zez5C/B4ZJJX9K9+mJhfjNXsJC85mXtQ8xDR4vIQVcwj63cJkmBB1XQ/xF [file] Cj1bjqzwaKXP+6zVx5Xw4Jb5n8/cOwc9u6W6wV7I+eHUJFgeuSKspMs2Adww6mNqgvD3MNHmDY+Chocolate Molder/7C [file] cckMqLMYs5nIEMVeBEwj6DPuwhl6x/plaster maker/x7wWBzjpeWzy3c/COws49eNVqIWxiyIbuJaGCv4T96ZHtMq [file] XF9k+RRRS9C1jI2F9yDNsOxkRcwZsf8CSG7J1l+aRAO+WoLeAytFtjZIeLbRflvqdm/plaster maker+CWH+XacAA2 [file] hq1+sjxuiOX07MkTuHCW+plaster maker+bADy8dynl7Cvq5d2/yjoxmZJji8U1x0ZrCeIMyuZvVHEmW9kpgKlfsuE [file] YzTm/1M3/kokZvQ/l18VLQy4tYwrLA0/jpX/oeOvC2H5bhuoH6q/Kf+l/JfyX8r/rn gyn/S30L1J4tqmz8 [file] dbTZd4yahK4haVzhB1rEX+Radiology Director/8zHo3XcgIa5YlntE [file] 1wubazuQ7474e3qc0kJYg8QIst9uticcmzttmvP3Cl KRS4w9LXi6O22/eoE+Af7mrgtIDBnrjoU+euoDpi17mwVyiAh8JoJFtRtCySWH8L1CPYMNDJq7SJu8Mk l9tF4dH52Y9Vvaod98+M/OxNHV/HsEAQcTNkQP27y6//H7Y4EIr2LwUGw240YVHKbkDQjgnJxG/78GSx iZS8+Xw+3xMormT0lROtuayTfmewEOOrkrDBcB232k fd7ZEaZNpBttyXh5wcRAqL0fLLJcW09yYh6ozIBpQZ/ULldCOPH1R6fpcs4q/w2KldSdoRscyjOEejVn YGdEflVkNqc02ozC54WRssKQQEvYBkfrhMAu2DVaNyLBcnNY+ISnsSbILwxH/6QG5E2JZIc3txqE3jWl x+GQAAPpphjICi1ryTlVW7wCnKSxfLCwC74mLDTHgO I9VN78YXEX+NurCt8QnirHTPNyGLvOvqFCvHsvZj4kKSByuCqVVEH8wolbmJJmAoU+hnHw7YMpEoZIZq DAumhawbN7POhGd2f54IxHiGjeF5jTrcjWpUwGXE33y5ns0cq1Zzl6GZNBgmNjQKjykdDvQb7+mR0pcJ SOLOMON//BQ1wG4+FAchHX5H6vWaOitnoEY1e08t86pwP5 1pa6So+P5wOEJSDG4YhW+l8flApiddxXHAwL1DrtWdOEasZt/fTnY47ykaRypVEITSJ2os/GJ58qHxbt cDL0fEpUwKhkbMcKiFbHCadTBpCVhebzoeVNt6S/Mskso164X+4OS6AWyHvYtxwUvBqKc/Ps4stB7Kxy TR9SexjHMmHaq+DXyfey8V2798vv46cMTQWFvd4uKQ lVCCXjvfF+/NWL07WXVbmk4Zy9PezB1+VDu6jPNQjvZTxXNwQ5HBXhYP64ppn4p4DFJ/NsPEdN4yV2UV pGMwqK9enHkMsjM80ZfAnGJusN/wLb8cZlDCuY7mrJwExCa9YN/A5v3WmcizbHxeKeVAaS2HGPq6sz1z TVBalGBZq4mqkiPX0ofPjNdIq6kzw13PLN12gWj4L5 R8fETHD10NsOzkLXMpLNN5RtTvKVe/B1LEaFZyCZxuQwW8lUZ3Kw3UWwKenw4rxszL+hcEl6/KSGso/l xV8XRDfliqB91pHv9jBRsmiYVBB4PqpCqh11zb/f4/2HvrqLiidE/0KZyDirgRBIPGOim4Uk/ubsGCFW 0miRjFJCZtVrWePZV8VKmSVChssPYIiR44b8zaj56n 1ua8fya16s/9uAf4lv460d5zn39t015+CJw0H9phCb99U7AS//UCmgleloGl81FaSflQxQDT2l9ema5A WG3Q81G7PcMzuQyN0qM39eFoxvh5BvIfG1MOiuscofJEFegvCKfym3AknL2VRTAieU9DieLdGwx7Ij/Y oRB9/R4Z+xUh8yqYHjj3oGqp6QwyAiv5jLQEWav31s kgNEf+N1opgUANocAtIq13+W6hlyEPv7LTAJof4DCeiLtjVY/UhZYeuRed03l47951ApcmwX7vn/Damián [file] KKt++Udw7aSAnyNMCZ6g03aoxbr3OK71ssW8Ev+CxV/th/WvP9SkoF4U++ZbsekynbY+KcPyVWONB/studio associate pWnerVndJ9tb+Ri35Au57cYl0IAecZoODgiUN1lo59 V2AoK8zId4aFxadSqe167PSjv3/N8S6VLJ/P9t7U0eQ2/y8q9kbMwd9O8A++X34b0qRj44eURC5cT58E GUQ4luD0sySK7dDT2/TQAPH/2jSCxecjXwlMOuMU9FUC1nn7UcFPI3MENdd9AfVMt9P2ztmxu7fRUqRO 4+d7LsGMWbRZqlIkLpSsCdJLZiCccdIAQvOFTasQik AM5cEOJCfksBNIeqrtQnkGIzCM4TIL1hl9JaLJY6GUInw6SuLCh4D0TwvLEdazTiLawlzIBUIJOdHVEs BGHeT5BzQSM4L8gQZKv5KEL3ACW2BSo3OJQnQPPHOQZpLXAAGAJRNNEuGQN7DRT+OOc1ZeRSFRFDSTl8 BRSjJxU8TdS7P6AGY7FCEaReYfdAQn9fB2Gba4FsTA TqZHMwJD8ezyKnFKAsEs6ByZpqIEA9X5X0qNOeD9dZMMViCaOgHEW1BMRgIu9uoRVcTH3BQnkwA3YvFE BgYASSXGDSAkx+MFWDfRXnA5QnqwLEa5uORK5LNEc6YretLVN/A0n+zHIw+RVEZrkBSUFTRTBZxAAA/a tC6y3TYN3dz9TdDYWmIIixthNnGuyRBVgnkGCfySpnTVBUUwUiPse7EMWTJoEzDF1C ID Date Data Source [id number] 12/22/2019 07:00:00 AM EDT [facility] Name Value Range Interpretation Code Description Data Gayle rce(s) Supporting Document(s) Hydrogen Breath Test [facility] JSIXPp3oJhPDBoCwNITaRegCDXtvEPhgOTCdV8D3FTseMe8RKEvkonQySMBfNa5+WAAoVK7lej9rLATr gMy [file] 8DcsGlBT19UO4reHxiSmO/gE7z4ypjC/studio associate+/aQPYKs8YxaxZ+3316bEE6AWii+sBJ6WzWtQX3ys68xD7 Estephania+qcZ/+6cfybvYyu25mtJSCp3NhCGcU8P294+Y4U [file] Chocolate Molder/PFvLcnQ1ViiBdlrwfk9JDRGue/pik1oGhmmkZHT [file] IBCILFJmWRDZBK4USYWUE3ZDTOBID4iXFBRHN1DRAIHEEbepRBUBQvqeZAXgTnYJO3auWnqA9BYR0dn3 FxCU7Da5DvgqB0akUmRJwyLcP8FFKCLuDfGG3X ID Date Data Source [id number] 12/12/2019 09:30:00 AM EDT [facility] Name Value Range Interpretation Code Description Data Gayle rce(s) Supporting Document(s) [facility] YSHIXu5bEyQNQzUwARAoFrcWETmjHElpRDXlP0F8KXhsLv1QTUcihlZyFRPlYu1+CXHkNV6vjt4cBGHp gMy 9tQFTaWmxzE0VrZGXhc20CWDKkQBbQFaOdRcVfKVU1KlSlDoM7UPY5PwViTjgzAH1zTRH7AKSyTXrzYQ ZiYQXsNgBpBKXfWx0dPFxlNRwzWq4IEN0bf6RxYXIsINVrJugAAKgpRGtfLSCmDEPgMKJbT385doBhZA 9WxBWpQOv0OEQqUrO7LDCwTtS3XKCvXwGjGgKdRVTt V8Wrz971lzYcyjI7BD1HP3UtANU1YTn3R4caCxFdOZDrUAHsER4kDcB2MPRpOg5ZgUusTSHwPDMzEg2E cYh0EDS0ACUaCx7+Pj4+Fz3qadZlDawJSYNmRP4kph83HQ0TvFCkSE3ECKgyN40yUTprHy62ZYypHESp XmFfRJt6Eh2eHsBrf4OlY4JlBSb2C6jFXczxB4JuHA ifHH2vPQV8EYMgNm4+Tz8pYFMqNG29FJJdQUOZS6XiavWhbiPnYEf1BIAnBh0+Tj7ujgRvCsoNRSMoYY 9lvv86DL0YIF1axBccZmY3JDJ3R43kfKAaZ7toGaNpK6DkrXloDNUnWP8iV9RmPQtyVQGiLU9xnlWvwL 8BlRj5JRTjSk6JuZF8AIEbP46bSNRiZTPCJNJpp6Xj BL1Ok8asbpApNLKiEF1GUWVrB1HNV3TuS9uvfUhvHCObXI5WWFlnmNJcRQy3LA0FeWYtGKUbZ80bmL6v FL17AWh+UnI2oxFlxI4LhKmksWAROD8H85k6q5WxJqY2EusjLL3a9VX6o5lnjMLAXKu4Ip1m7b5DpCAu Y59623r584qc22rj7z3oxP877z5+1Dm1T/6wJE2qQ/ P52MmWuLBuPkZyFVLrrgNdxNAgqbYEGSYgKEMC6m/QKqWdY5SCiqQBFAWqVrM/C9ovaIZuww/M/oGLiw vIwC/AdwNBxldO7O1PGBB0IKbBLSTgBNYBolYxEs6R6tPLyXfO6de7eQI2DaWQW3kFQ/faBwACAHBIcP 9hgP/Y5VDVOCKQOGWN6HV+ZqjHBcDDISDAIyIgISEi [file] 6EZ955QuE0x2gKj1VU11RUJz7FqTWHHhQFCUidpVL5JFbGPYjPWLbW/1bpxi/PSX98DqJ0SB6EjWa+studio associate [file] AMHARIC/Fp7xzjMHwHCB84V2FzwP5ykAq0uQStWVmL0ssNpyZ21dYvzP/QiUY2kpdNAeC4687FmIZ4FFz3Frs R3JmP621U8hj6be5fkD/Le0cr57XeDEFwg4mUo1StIr7tHsUoj++cNUL98cqa7b34uGDBZGOrYvip7A+ 0eR8Ei5ivLUKStdEuOfKwEsDA6qMDxE39vmmBwOLEi vd43pyNYAR938OX/YUXpRAHYqM1fnaIMLfM6m8JafWmItGY0/p87a2CiB9yOBOS95RN7dBKaX2BTR1Ot QqYy8opfcsfjmmDy1PMo4CVYarBhd1edkK/plAJYPH+oQhjaliU88v5ms2CL3mHI1Tl6Wc1kO7afs/vp talent management [file] XEK+1CiY6sivB7MfaM76sHQtYQq9Q92Emr/help desk internship/vCb0pNhleWw6JgIiT/vQs30Vs//6Dm6rrPfEn4Df4 [file] kOmfD3EezO2F0H+HOzNrrthDrp7zAnSmEOENV8RSSet2leAZdA44NOpIALOKa+eibQq/automatic drilling machine operator/7ENF46SZ [file] 1atte6JxbuZ+BHb59TcgkW/plaster maker/Zv7IiYEd2I+WzS7jZeP8pai8WBfwj2iSlVBpVo4/6nJlHAZ9mnX+ZQ [file] ejELOX2to/jW/5jBrR6cMCP+zakiya+lBNfO3bn+sbXAu8 U82qwh/EBgoNZaXVml21nvgd70ngG5pIG3m+kJqQwoINuxBX/32H+uubsBnlJqSEljtE0nl5YUeu/ZvP cTN6UhBFaTgTC6E7g/3zMoZi3fzzHsdKsLCZuvNStYjXXTXQ/1W9Csg2GHNnZ+/xyKDe4ZST0q1wRsdH jStDXJnzSJzt3svvA9ntmcM6DSQBPmvck2D+91Y1rq owPRNVzaG7tZ8Cj1Iapz+BZHBvrVbF4M8dLGGdQwPdVuQOnXbdZncEm8F5/PHIhtWS+I5dZrgIEHH1F5 wSEJIRh7efimdLlLU721Qqo9LejStMSPw0AYV/BEvbEi0F8wuwIEnc+KiyhU4ZnMUrMhOVYgQMIOude8 XuLHlFPSXiFWrFvxWe+YqOtjsLlxmVoZxXiJ330yKm us/x8TSyld1Z4jcBmcP+/la433kS56g4M8/AvQJf4i7nejFRblNH3gTehLUrDB1hVHq51eiYiQv/ZdQ2 H55W1l1K55S9rldY43oiXY4B0o/d+ep4lMR+h4MIT31KNKR1FU1lH8BW83x1ZRQ3VB4kEWiUXmT0DsUy Android Software Engineer+aYuKj+E2MLm763c/As/34+5hP3EGp3tFOWIdM8R [file] Chocolate Molder+z/afUD/OY8N7EomjjDj3H17GpN4M5HAOI0YFMnV [file] Android Software Engineer+IjLLk7rkH8zN2FyR+1W/+32m+j02aXmck2aV6H9 [file] vp talent management/RHp1FWKfcQfbnye+GMbOFBX6JPGMLGUNmE+dls7xcgZOC+6BMZti+j9CvHMNxIHaisLPDyNOf92Vs [file] jo [file] WOeckiv6pMzspLXgZ6TLOgzHdJb80yHeA6nPTB04ETL+YgDSE8hB4/Chocolate Molder+IzeUo0EXxrEjz/bVnXZIfJu [file] UhWlhJ8Uufc9sa2PQ72hVVfmvEgCXW8KBrd0KCYFV7Lsj/2+7xoglCgfVn1qjJ+/8+hpxbG1PnGVK+studio associate [file] ehLO4WfEQB9X4H8Cj2EQir/6TUAxAtrium Health KannapoliswBwBwBwBwBwBwBwBwBwBwBwBwBwBwBwBwAtrium Health Union WestwC[facility] Clinic Mary[facility] HospitalBwFranklin County Memorial HospitalNz/m4YUGBHXEEMD++rI1v9DnB3gh+eHlaRg6mrT [file] fMygiIlp2K9m0ZIS6qr5RzOETyRFcvmsPlZghHNFwakXEigGjlXLJTUsKwPFe5ONIUXoNtYL6I Procedure Social History Code Duration Value Status Description Data Source(s ) Smoking 03/17/2019 12:00:00 AM EST Quit completed Quit [facility] ([employer]) Vital Signs ID Date Data Source UNK Name Value Range Interpretation Code Description Data Source(s) Body surface area Derived from formula 1.44 m2 1.44 m2 [facility] ([employer] TE[employer]) Body mass index (BMI) [Ratio] 18.8 kg/m2 18.8 k g/m2 [facility] ([employer] TE[employer]IC[employer]) Body weight 103.00 [lb_av] 103.00 [lb_av] 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) Body height 62 [in_i] 62 [in_i] [facility] ([employer] BUILD TECHNICIAN) 5'2" Diastolic blood pressure 64 mm[Hg] 64 mm[Hg] [facility] ([employer] BUILD TECHNICIAN) Systolic blood pressure 106 mm[Hg] 106 mm[Hg] M EDENT ([employer] BUILD TECHNICIAN) Body surface area Derived from formula 1.47 m2 1.47 m2 [facility] ([facility]) Body weight 47.628 kg 47.628 kg [facility] ([facility]) [place] body weight 115 [lb_av] 115 [lb_av] [facility] T ([facility]) Body mass index (BMI) [Ratio] 18.6 kg/m2 18.6 k g/m2 [facility] ([facility]) Body weight 105.00 [lb_av] 105.00 [lb_av] [facility] T ([facility]) Body height 63 [in_i] 63 [in_i] [facility] ([facility]) 5'3" Diastolic blood pressure 81 mm[Hg] 81 mm[Hg] [facility] ([facility]) Systolic blood pressure 123 mm[Hg] 123 mm[Hg] [facility] Body surface area Derived from formula 1.46 m2 1.46 m2 [facility] ([facility]) Body weight 46.721 kg 46.721 kg [facility] ([facility]) [place] body weight 115 [lb_av] 115 [lb_av] MEDEN T ([facility]) Body mass index (BMI) [Ratio] 18.2 kg/m2 18.2 k g/m2 [facility] ([facility]) Body weight 103.00 [lb_av] 103.00 [lb_av] MEDEN T ([facility]) Body height 63 [in_i] 63 [in_i] [facility] ([facility], ) 5'3" Diastolic blood pressure 60 mm[Hg] 60 mm[Hg] [facility] ([facility], ) Systolic blood pressure 116 mm[Hg] 116 mm[Hg] M EDENT ([facility], ) Diastolic blood pressure 78 mm[Hg] 78 mm[Hg] eCW1 ([facility]) Systolic blood pressure 120 mm[Hg] 120 mm[Hg] e CW1 ([facility]) Body mass index (BMI) [Ratio] 18.24 kg/m2 18.24 kg/m2 eCW1 ([facility]) Body height 63 [in_us] 63 [in_us] eCW1 ([facility]) Body weight Measured 103 [lb_av] 103 [lb_av] eC W1 ([facility]) Body surface area 1.45 m2 1.45 m2 [facility] ([employer] BUILD TECHNICIAN) Body surface area Derived from formula 1.45 m2 1.45 m2 [facility] ([employer] BUILD TECHNICIAN) Body mass index (BMI) [Ratio] 18.7 kg/m2 18.7 k g/m2 [facility] ([employer] BUILD TECHNICIAN) Body weight 103.00 [lb_av] 103.00 [lb_av] 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) Body height 62.25 [in_i] 62.25 [in_i] [facility] ([employer] BUILD TECHNICIAN) 5'2.25" Diastolic blood pressure 62 mm[Hg] 62 mm[Hg] [facility] ([employer] BUILD TECHNICIAN) Systolic blood pressure 108 mm[Hg] 108 mm[Hg] M EDENT ([employer] BUILD TECHNICIAN)
[2020-04-03] MEDS ORDERED: propofoL 200 MG/20 ML VIAL As Ordered ONE ×2 (10:06→10:24)
--- NOTE | 2020-04-03 10:42 | ROOR ---
Patient Name: Elvia Norman Procedure Date: 04/03/2020 9:45 AM Date of : 1960 Age: 59 Room: [facility] Gender: Female Note Status: Finalized Procedure: Colonoscopy Indications: Change in bowel habits, Chronic diarrhea Providers: Aung Arreola MD Referring MD: CHAI DAILEY MD Requesting Provider: Medicines: Monitored Anesthesia Care Complications: No immediate complications. Procedure: Pre-Anesthesia Assessment: - Prior to the procedure, a History and Physical was performed, and patient medications and allergies were reviewed. The patient is competent. The risks and benefits of the procedure and the sedation options and risks were discussed with the patient. All questions were answered and informed consent was obtained. Patient identification and proposed procedure were verified by the physician, the nurse and the collections professional in the endoscopy suite. Mental Status Examination: alert and oriented. Airway Examination: normal oropharyngeal airway and neck mobility. Respiratory Examination: clear to auscultation. CV Examination: normal. Prophylactic Antibiotics: The patient does not require prophylactic antibiotics. Prior Anticoagulants: The patient has taken no previous anticoagulant or antiplatelet agents. ASA Grade Assessment: II - A patient with mild systemic disease. After reviewing the risks and benefits, the patient was deemed in satisfactory condition to undergo the procedure. The anesthesia plan was to use monitored anesthesia care (MAC). Immediately prior to administration of medications, the patient was re-assessed for adequacy to receive sedatives. The heart rate, respiratory rate, oxygen saturations, blood pressure, adequacy of pulmonary ventilation, and response to care were monitored throughout the procedure. The physical status of the patient was re-assessed after the procedure. The Colonoscope was introduced through the anus and advanced to the cecum, identified by appendiceal orifice and ileocecal valve. The colonoscopy was technically difficult and complex due to poor bowel prep. Successful completion of the procedure was aided by lavage. The patient tolerated the procedure. The quality of the bowel preparation was poor. Findings: Skin tags were found on perianal exam. The transverse colon was moderately redundant. no gross inflammation throughout colon, hard to clear and visualize colon mucosa due to poor prep, No large polyps, masses, but flat and small polyps may have been missed. Random biopsies done for microscopic colitis, Lavage of the area was performed using greater than 500 mL of sterile water, resulting in incomplete clearance with fair visualization. Biopsies for histology were taken with a cold forceps from the right colon, left colon, sigmoid colon and rectum for evaluation of microscopic colitis. Estimated blood loss was minimal. Non-bleeding internal hemorrhoids were found during retroflexion. The hemorrhoids were medium-sized. Impression: - Preparation of the colon was poor. - Perianal skin tags found on perianal exam. - Redundant colon. - Non-bleeding internal hemorrhoids. Recommendation: - Repeat colonoscopy in 1 year because the bowel preparation was suboptimal. - Telephone my office for pathology results in 1 week. Procedure Code(s): --- Professional --- 05338, Colonoscopy, flexible; with biopsy, single or multiple Diagnosis Code(s): --- Professional --- K64.8, Other hemorrhoids K64.4, Residual hemorrhoidal skin tags R19.4, Change in bowel habit K52.9, Noninfective gastroenteritis and colitis, unspecified Q43.8, Other specified congenital malformations of intestine CPT copyright 2019 [employer]. All rights reserved. The codes documented in this report are preliminary and upon death surveys coder review may be revised to meet current compliance requirements. Aung Arreola MD Aung Arreola MD 04/03/2020 10:42:27 AM Electronically signed by Aung Arreola MD Number of Addenda: 0 Note Initiated On: 04/03/2020 9:45 AM Estimated Blood Loss: Estimated blood loss was minimal.
[2020-04-03 11:10] VITALS: BP 100/55
== END 2020-04-03 11:12 | disposition home or self-care (01) ==
LOC: M OPP 07:39
PROVIDERS: ATTEND Surgery
DX: R19.4 Change in bowel habit (principal); K52.9 Noninfective gastroenteritis and colitis, unspecified; Z80.0 Family history of malignant neoplasm of digestive organs; D12.6 Benign neoplasm of colon, unspecified; K64.4 Residual hemorrhoidal skin tags; K64.8 Other hemorrhoids; Q43.8 Other specified congenital malformations of intestine; F41.9 Anxiety disorder, unspecified; G43.909 Migraine, unspecified, not intractable, without status migrainosus; Z88.0 Allergy status to penicillin; Z88.5 Allergy status to narcotic agent; Z79.899 Other long term (current) drug therapy

== ENCOUNTER → 2020-08-29 | Outpatient (REF) ==
[~2020-08-29] MED LIST changes: -LIDOCAINE 2% 100MG/5ML SDV (FOR ANES.) As Ordered ONE; -NS 1,000 ML IV ONE; -propofoL 200 MG/20 ML VIAL As Ordered ONE
== END ==
LOC: M LABSMTC 12:07
PROVIDERS: ATTEND Pediatrics
DX: Z11.52 Encounter for screening for COVID-19 (principal)

== ENCOUNTER → 2020-09-06 | Outpatient (REF) | payer BC | LOC: M LAB REF 08:26 | PROVIDERS: ATTEND Nurse Practitioner Family | DX: R19.7 Diarrhea, unspecified (principal) ==

== ENCOUNTER → 2020-12-20 | Outpatient (CLI) | payer BC ==
[2020-12-20 07:05] LABS: HEMATOCRIT 41.5 % (36.0-47.0); HEMOGLOBIN 13.6 g/dl (12.0-15.5); MEAN CORPUSCULAR HEMOGLOBIN 32.1 pg (27.0-33.0); MEAN CORPUSCULAR HGB CONC 32.8 g/dl (32.0-36.5); MEAN CORPUSCULAR VOLUME 97.9 fl (80.0-96.0); PLATELET COUNT, AUTOMATED 225 10^3/uL (150-450); RED BLOOD COUNT 4.24 10^6/uL (4.00-5.40); WHITE BLOOD COUNT 3.9 10^3/uL (4.0-10.0)
[2020-12-20 07:40] LABS: ALBUMIN 3.7 GM/DL (3.2-5.2); ALT/SGPT 19 U/L (12-78); BILIRUBIN,TOTAL 0.4 MG/DL (0.2-1.0); BLOOD UREA NITROGEN 19 MG/DL (7-18); CARBON DIOXIDE LEVEL 30 MEQ/L (21-32); CHLORIDE LEVEL 107 MEQ/L (98-107); CHOLESTEROL LEVEL 228 MG/DL (<200); CREATININE FOR GFR 0.71 MG/DL (0.55-1.30); GLOMERULAR FILTRATION RATE > 60.0 (>51); GLUCOSE, FASTING 90 MG/DL (70-100); HDL CHOLESTEROL 88 MG/DL (>40); IRON (FE) 106 UG/DL (50-170); LDL CHOLESTEROL 123 MG/DL (<100); MAGNESIUM LEVEL 2.2 MG/DL (1.8-2.4); NON-HDL-C 140 MG/DL; PERCENT SATURATION 25.5 % (13.2-45.0); POTASSIUM SERUM 4.5 MEQ/L (3.5-5.1); SODIUM LEVEL 142 MEQ/L (136-145); THYROXINE (T4) 9.3 UG/DL (4.5-12.0); TOTAL IRON BINDING CAPACITY 416 UG/DL (250-450); TOTAL PROTEIN 6.9 GM/DL (6.4-8.2); TRIGLYCERIDES LEVEL 85 MG/DL (<150)
--- NOTE | 2020-12-20 08:52 | REP ---
INDICATION: HTN- EKG AFTER. COMPARISON: 08/11/2017 the latest prior TECHNIQUE: PA and lateral FINDINGS: The superior mediastinal structures are midline. The cardiac silhouette is unremarkable in size, shape, and position. The diaphragmatic surfaces of the lungs are regular, and the costophrenic angles are clear. The pulmonary oliver are clear. The imaged osseous structures are intact. Note is again made of a calcified granuloma in the right upper lobe. This was originally seen on an examination dated 06/14/2013. Although it has increased in size it is denser than rib density. IMPRESSION: There is no acute cardiopulmonary disease. <Electronically signed by Luis Alfredo Gauthier > 12/20/20 [id number]
[2020-12-20 12:27] LABS: TOTAL T3 110.5 NG/DL (60.0-181.0)
--- NOTE | 2020-12-21 17:56 | ECGEPIP ---
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
== END ==
LOC: M RAD 06:25
PROVIDERS: ATTEND Family Medicine
DX: I10 Essential (primary) hypertension (principal); R53.83 Other fatigue; E03.9 Hypothyroidism, unspecified

== ENCOUNTER → 2021-03-11 | Outpatient (REF) | LOC: M LABSMTC 14:14 | PROVIDERS: ATTEND Pediatrics | DX: Z20.822 Contact with and (suspected) exposure to COVID-19 (principal) ==

== ENCOUNTER → 2021-03-12 | Outpatient (REF) | LOC: M LABSMTC 12:50 | PROVIDERS: ATTEND Family Medicine | DX: Z20.822 Contact with and (suspected) exposure to COVID-19 (principal) ==

== ENCOUNTER → 2021-03-15 | Outpatient (REF) | LOC: M LABSMTC 09:28 | PROVIDERS: ATTEND Family Medicine | DX: Z11.52 Encounter for screening for COVID-19 (principal) ==

== ENCOUNTER → 2021-11-19 | Outpatient (CLI) | payer BC | LOC: M RAD 14:13 | PROVIDERS: ATTEND Family Medicine | DX: J40 Bronchitis, not specified as acute or chronic (principal) ==

== ENCOUNTER → 2021-12-19 | Outpatient (CLI) | payer BC | LOC: M WHC 11:16 | PROVIDERS: ATTEND Family Medicine | DX: Z12.31 Encounter for screening mammogram for malignant neoplasm of breast (principal) ==

== ENCOUNTER → 2022-03-04 | Outpatient (CLI) | payer BC ==
[2022-03-04 07:14] LABS: HEMOGLOBIN 14.2 g/dl (12.0-15.5); MEAN CORPUSCULAR HEMOGLOBIN 32.3 pg (27.0-33.0); MEAN CORPUSCULAR VOLUME 97.9 fl (80.0-96.0); PLATELET COUNT, AUTOMATED 282 10^3/uL (150-450); RED BLOOD COUNT 4.39 10^6/uL (4.00-5.40); WHITE BLOOD COUNT 4.9 10^3/uL (4.0-10.0)
[2022-03-04 07:43] LABS: ALBUMIN 3.8 G/DL (3.2-5.2); ALKALINE PHOSPHATASE 91 U/L (46-116); ALT/SGPT 16 U/L (7.0-40); AST/SGOT 16 U/L (<34); BILIRUBIN,TOTAL 0.4 MG/DL (0.3-1.2); BLOOD UREA NITROGEN 12 MG/DL (9-23); CARBON DIOXIDE LEVEL 30 MMOL/L (20-31); CHLORIDE LEVEL 107 MMOL/L (98-107); CHOLESTEROL LEVEL 217 MG/DL (<200); CHOLESTEROL RISK RATIO 3.07 (<5); GLOMERULAR FILTRATION RATE > 60.0 (>45); GLUCOSE, FASTING 95 MG/DL (74-106); HDL CHOLESTEROL 70.6 MG/DL (>40); IRON (FE) 113 UG/DL (50-170); LDL CHOLESTEROL 130.8 MG/DL (<100); NON-HDL-C 146 MG/DL; PERCENT SATURATION 33.5 % (13.2-45.0); POTASSIUM SERUM 4.4 MMOL/L (3.5-5.1); SODIUM LEVEL 142 MMOL/L (136-145); TOTAL IRON BINDING CAPACITY 337 UG/DL (250-425); TOTAL PROTEIN 7.2 G/DL (5.7-8.2); TRIGLYCERIDES LEVEL 78 MG/DL (<150)
[2022-03-04 07:44] LABS: THYROID STIMULATING HORMONE 2.032 uIU/ML (0.55-4.78)
[2022-03-04 07:45] LABS: FOLATE 4.73 NG/ML (>5.4); TOTAL 25(OH) VITAMIN D 49.5 NG/ML (20.0-100.0); VITAMIN B12 LEVEL 329 PG/ML (211-911)
== END ==
LOC: M LAB 06:45
PROVIDERS: ATTEND Family Medicine
DX: D64.9 Anemia, unspecified (principal); R53.83 Other fatigue

== ENCOUNTER → 2022-05-07 | Outpatient (CLI) | payer BC ==
[2022-05-07 10:05] LABS: LUTEINIZING HORMONE 50.2 mIU/ML
[2022-05-07 10:06] LABS: ESTRADIOL 21.5 PG/ML
== END ==
LOC: M LAB 08:37
PROVIDERS: ATTEND Family Medicine
DX: E03.9 Hypothyroidism, unspecified (principal); N94.3 Premenstrual tension syndrome

== ENCOUNTER 2022-05-25 17:36 | Emergency (ER) | payer BC ==
[~2022-05-25] VITALS: Ht 160 cm; Wt 52.3 kg
[2022-05-25 19:04] LABS: BASO % 0.7 % (0.0-1.0); EOS # 0.1 10^3/uL (0.0-0.5); EOS % 1.6 % (0.0-3.0); HEMATOCRIT 43.2 % (36.0-47.0); HEMOGLOBIN 14.3 g/dl (12.0-15.5); LYMPH # 1.7 10^3/uL (1.5-5.0); LYMPH % 28.4 % (24.0-44.0); MEAN CORPUSCULAR HEMOGLOBIN 32.1 pg (27.0-33.0); MEAN CORPUSCULAR HGB CONC 33.1 g/dl (32.0-36.5); MEAN CORPUSCULAR VOLUME 96.9 fl (80.0-96.0); MONO # 0.5 10^3/uL (0.0-0.8); MONO % 8.6 % (2.0-8.0); NEUTROPHILS # 3.5 10^3/uL (1.5-8.5); NEUTROPHILS % 60.5 % (36.0-66.0); PLATELET COUNT, AUTOMATED 207 10^3/uL (150-450); RED BLOOD COUNT 4.46 10^6/uL (4.00-5.40); WHITE BLOOD COUNT 5.8 10^3/uL (4.0-10.0)
[2022-05-25 19:25] LABS: ALBUMIN 4.3 G/DL (3.2-5.2); BILIRUBIN,DIRECT 0.1 MG/DL (<0.4); BILIRUBIN,TOTAL 0.4 MG/DL (0.3-1.2)
[2022-05-25] MEDS ORDERED: VALA1TAB5 PO (19:55)
[2022-05-25 20:27] VITALS: BP 123/60
== END 2022-05-25 20:29 | disposition home or self-care (01) ==
LOC: M ED 17:36
DX: B02.9 Zoster without complications (principal); Z88.0 Allergy status to penicillin; Z88.5 Allergy status to narcotic agent; Z79.899 Other long term (current) drug therapy

== ENCOUNTER → 2022-06-12 | Outpatient (CLI) | payer BC ==
[~2022-06-12] MED LIST changes: +VALA1TAB5 PO
== END ==
LOC: M SLEEP HO 10:56
PROVIDERS: ATTEND Internal Medicine Cardiovascular Disease
DX: G47.9 Sleep disorder, unspecified (principal)

== ENCOUNTER → 2022-08-20 | Outpatient (CLI) | payer BC ==
[2022-08-20 08:15] LABS: HEMATOCRIT 41.2 % (36.0-47.0); HEMOGLOBIN 13.5 g/dl (12.0-15.5); MEAN CORPUSCULAR HEMOGLOBIN 33.1 pg (27.0-33.0); MEAN CORPUSCULAR HGB CONC 32.8 g/dl (32.0-36.5); PLATELET COUNT, AUTOMATED 228 10^3/uL (150-450); RED BLOOD COUNT 4.08 10^6/uL (4.00-5.40); WHITE BLOOD COUNT 3.7 10^3/uL (4.0-10.0)
[2022-08-20 08:35] LABS: IRON (FE) 69 UG/DL (50-170)
[2022-08-20 08:36] LABS: ALBUMIN 3.8 G/DL (3.2-5.2); ALKALINE PHOSPHATASE 66 U/L (46-116); ALT/SGPT 18 U/L (7.0-40); AST/SGOT 10 U/L (<34); BILIRUBIN,TOTAL 0.5 MG/DL (0.3-1.2); BLOOD UREA NITROGEN 12 MG/DL (9-23); CALCIUM LEVEL 9.6 MG/DL (8.3-10.6); CARBON DIOXIDE LEVEL 28 MMOL/L (20-31); CHLORIDE LEVEL 108 MMOL/L (98-107); CHOLESTEROL LEVEL 257 MG/DL (<200); CREATININE FOR GFR 0.68 MG/DL (0.55-1.30); GLOMERULAR FILTRATION RATE > 60.0 (>45); GLUCOSE, FASTING 88 MG/DL (74-106); HDL CHOLESTEROL 85.6 MG/DL (>40); LDL CHOLESTEROL 157.8 MG/DL (<100); MAGNESIUM LEVEL 2.2 MG/DL (1.8-2.4); NON-HDL-C 171.4 MG/DL; PERCENT SATURATION 18.4 % (13.2-45.0); POTASSIUM SERUM 4.3 MMOL/L (3.5-5.1); SODIUM LEVEL 141 MMOL/L (136-145); THYROID STIMULATING HORMONE 2.307 uIU/ML (0.55-4.78); TOTAL 25(OH) VITAMIN D 32.4 NG/ML (20.0-100.0); TOTAL IRON BINDING CAPACITY 375 UG/DL (250-425); TOTAL PROTEIN 6.4 G/DL (5.7-8.2); TRIGLYCERIDES LEVEL 68 MG/DL (<150)
[2022-08-20 08:50] LABS: HEMOGLOBIN A1c 5.4 % (4.0-6.0)
== END ==
LOC: M LAB 07:27
PROVIDERS: ATTEND Family Medicine
DX: D64.9 Anemia, unspecified (principal)

== ENCOUNTER → 2023-03-08 | Outpatient (CLI) | payer BC | LOC: M RAD 14:11 | PROVIDERS: ATTEND Family Medicine | DX: M16.0 Bilateral primary osteoarthritis of hip (principal) ==

== ENCOUNTER → 2023-05-03 | Outpatient (CLI) | payer BC ==
[2023-05-03 10:09] LABS: HEMATOCRIT 40.9 % (36.0-47.0); HEMOGLOBIN 13.6 g/dl (12.0-15.5); MEAN CORPUSCULAR HEMOGLOBIN 32.2 pg (27.0-33.0); MEAN CORPUSCULAR HGB CONC 33.3 g/dl (32.0-36.5); MEAN CORPUSCULAR VOLUME 96.7 fl (80.0-96.0); PLATELET COUNT, AUTOMATED 220 10^3/uL (150-450); RED BLOOD COUNT 4.23 10^6/uL (4.00-5.40); WHITE BLOOD COUNT 3.1 10^3/uL (4.0-10.0)
[2023-05-03 10:24] LABS: HEMOGLOBIN A1c 5.5 % (4.0-6.0)
[2023-05-03 10:38] LABS: IRON (FE) 146 UG/DL (50-170); TOTAL IRON BINDING CAPACITY 348 UG/DL (250-425)
[2023-05-03 10:39] LABS: ALBUMIN 3.8 G/DL (3.2-5.2); ALKALINE PHOSPHATASE 86 U/L (46-116); ALT/SGPT 17 U/L (7.0-40); AST/SGOT 13 U/L (<34); BILIRUBIN,TOTAL 0.5 MG/DL (0.3-1.2); BLOOD UREA NITROGEN 10 MG/DL (9-23); CALCIUM LEVEL 9.2 MG/DL (8.3-10.6); CARBON DIOXIDE LEVEL 30 MMOL/L (20-31); CHLORIDE LEVEL 106 MMOL/L (98-107); CHOLESTEROL LEVEL 208 MG/DL (<200); CHOLESTEROL RISK RATIO 2.96 (<5); CREATININE FOR GFR 0.66 MG/DL (0.55-1.30); GLOMERULAR FILTRATION RATE > 60.0 (>45); GLUCOSE, FASTING 89 MG/DL (74-106); HDL CHOLESTEROL 70.1 MG/DL (>40); LDL CHOLESTEROL 121.5 MG/DL (<100); NON-HDL-C 137.9 MG/DL; POTASSIUM SERUM 4.1 MMOL/L (3.5-5.1); SODIUM LEVEL 142 MMOL/L (136-145); TOTAL PROTEIN 6.4 G/DL (5.7-8.2); TRIGLYCERIDES LEVEL 82 MG/DL (<150)
[2023-05-03 10:40] LABS: TOTAL 25(OH) VITAMIN D 58.5 NG/ML (20.0-100.0)
[2023-05-03 10:41] LABS: THYROID STIMULATING HORMONE 3.115 uIU/ML (0.55-4.78)
== END ==
LOC: M LAB 08:21
PROVIDERS: ATTEND Family Medicine
DX: D64.9 Anemia, unspecified (principal); R53.83 Other fatigue; E03.9 Hypothyroidism, unspecified

== ENCOUNTER → 2023-06-29 | Outpatient (CLI) | payer BC | LOC: M RAD 12:26 | PROVIDERS: ATTEND Family Medicine | DX: M54.30 Sciatica, unspecified side (principal) ==

== ENCOUNTER → 2023-10-05 | Outpatient (CLI) | payer BC | LOC: M RAD 15:34 | PROVIDERS: ATTEND Family Medicine | DX: J40 Bronchitis, not specified as acute or chronic (principal) ==

== ENCOUNTER → 2023-12-22 | Outpatient (REF) | payer BC ==
[2023-12-24 14:48] LABS: HPV APTIMA Not Detected (Not Detected)
== END ==
LOC: M SFHCWAGY 10:36
PROVIDERS: ATTEND Nurse Practitioner Family
DX: Z12.4 Encounter for screening for malignant neoplasm of cervix (principal); N95.2 Postmenopausal atrophic vaginitis
CPT/HCPCS: 87624; G0123

== ENCOUNTER → 2023-12-22 | Outpatient (CLI) | payer BC | LOC: M WHC 08:03 | PROVIDERS: ATTEND Nurse Practitioner Family | DX: Z12.31 Encounter for screening mammogram for malignant neoplasm of breast (principal); R92.323 Mammographic fibroglandular density, bilateral breasts ==

== ENCOUNTER → 2024-01-18 | Outpatient (CLI) | payer BC ==
[2024-01-18 08:16] LABS: HEMATOCRIT 41.4 % (36.0-47.0); HEMOGLOBIN 13.8 g/dl (12.0-15.5); MEAN CORPUSCULAR HEMOGLOBIN 32.8 pg (27.0-33.0); MEAN CORPUSCULAR HGB CONC 33.3 g/dl (32.0-36.5); MEAN CORPUSCULAR VOLUME 98.3 fl (80.0-96.0); PLATELET COUNT, AUTOMATED 213 10^3/uL (150-450); RED BLOOD COUNT 4.21 10^6/uL (4.00-5.40); WHITE BLOOD COUNT 3.3 10^3/uL (4.0-10.0)
[2024-01-18 08:27] LABS: HEMOGLOBIN A1c 5.3 % (4.0-6.0)
[2024-01-18 08:47] LABS: IRON (FE) 112 UG/DL (50-170); PERCENT SATURATION 31.2 % (13.2-45.0); TOTAL IRON BINDING CAPACITY 359 UG/DL (250-425)
[2024-01-18 08:48] LABS: ALBUMIN 3.7 G/DL (3.2-5.2); ALKALINE PHOSPHATASE 61 U/L (35-104); ALT/SGPT 24 U/L (7.0-40); AST/SGOT 17 U/L (<34); BILIRUBIN,TOTAL 0.5 MG/DL (0.3-1.2); BLOOD UREA NITROGEN 16 MG/DL (9-23); CALCIUM LEVEL 9.6 MG/DL (8.3-10.6); CARBON DIOXIDE LEVEL 29 MMOL/L (20-31); CHLORIDE LEVEL 108 MMOL/L (98-107); CHOLESTEROL LEVEL 259 MG/DL (<200); CHOLESTEROL RISK RATIO 3.24 (<5); CREATININE FOR GFR 0.76 MG/DL (0.55-1.30); GLOMERULAR FILTRATION RATE > 60.0 (>45); GLUCOSE, FASTING 92 MG/DL (74-106); HDL CHOLESTEROL 79.9 MG/DL (>40); LDL CHOLESTEROL 163.3 MG/DL (<100); NON-HDL-C 179.1 MG/DL; POTASSIUM SERUM 4.4 MMOL/L (3.5-5.1); SODIUM LEVEL 141 MMOL/L (136-145); TOTAL PROTEIN 6.4 G/DL (5.7-8.2); TRIGLYCERIDES LEVEL 79 MG/DL (<150)
[2024-01-18 08:52] LABS: THYROID STIMULATING HORMONE 2.128 uIU/ML (0.55-4.78); TOTAL 25(OH) VITAMIN D 39.7 NG/ML (20.0-100.0)
== END ==
LOC: M LAB 07:22
PROVIDERS: ATTEND Family Medicine
DX: D64.9 Anemia, unspecified (principal); R53.83 Other fatigue; E03.9 Hypothyroidism, unspecified

== ENCOUNTER → 2024-03-23 | Outpatient (CLI) | payer BC | LOC: M RAD 07:45 | PROVIDERS: ATTEND Family Medicine | DX: J44.9 Chronic obstructive pulmonary disease, unspecified (principal) ==

== ENCOUNTER → 2024-04-05 | Outpatient (REF) | payer BC | LOC: M LAB REF 17:11 | PROVIDERS: ATTEND Otolaryngology | DX: J32.4 Chronic pansinusitis (principal) ==

== ENCOUNTER → 2024-04-17 | Outpatient (CLI) | payer BC | LOC: M PLAIMG 12:27 | PROVIDERS: ATTEND Otolaryngology | DX: J32.4 Chronic pansinusitis (principal); J34.2 Deviated nasal septum ==

== ENCOUNTER → 2024-05-02 | Outpatient (CLI) | payer BC | LOC: M LAB 12:48 | PROVIDERS: ATTEND Family Medicine | DX: R07.81 Pleurodynia (principal) ==

== ENCOUNTER → 2024-08-24 | Outpatient (CLI) | payer BC ==
[2024-08-24 08:28] LABS: PLATELET COUNT, AUTOMATED 207 10^3/uL (150-450)
[2024-08-24 08:48] LABS: ESTIMATED AVERAGE GLUCOSE 108.0 MG/DL (60-110)
[2024-08-24 08:53] LABS: ALT/SGPT 17 U/L (7.0-40); AST/SGOT 20 U/L (<34); CALCIUM LEVEL 8.8 MG/DL (8.3-10.6); CARBON DIOXIDE LEVEL 28 MMOL/L (20-31); CHLORIDE LEVEL 107 MMOL/L (98-107); CHOLESTEROL LEVEL 219 MG/DL (<200); CHOLESTEROL RISK RATIO 3.27 (<5); CREATININE FOR GFR 0.68 MG/DL (0.55-1.30); GLOMERULAR FILTRATION RATE > 90.0 (>45); IRON (FE) 90 UG/DL (50-170); LDL CHOLESTEROL 136.7 MG/DL (<100); NON-HDL-C 152.1 MG/DL; PERCENT SATURATION 27.6 % (13.2-45.0); POTASSIUM SERUM 4.4 MMOL/L (3.5-5.1); SODIUM LEVEL 144 MMOL/L (136-145); TRIGLYCERIDES LEVEL 77 MG/DL (<150)
[2024-08-24 08:55] LABS: TOTAL 25(OH) VITAMIN D 69.4 NG/ML (20.0-100.0)
== END ==
LOC: M LAB 07:52
PROVIDERS: ATTEND Family Medicine
DX: D64.9 Anemia, unspecified (principal); R53.83 Other fatigue; E03.9 Hypothyroidism, unspecified

== ENCOUNTER → 2024-10-02 | Outpatient (CLI) | payer BC ==
[2024-10-02 09:01] LABS: BASO # 0.0 10^3/uL (0.0-0.2); BASO % 0.9 % (0.0-1.0); EOS # 0.0 10^3/uL (0.0-0.5); EOS % 0.9 % (0.0-3.0); LYMPH # 1.3 10^3/uL (1.5-5.0); LYMPH % 39.0 % (24.0-44.0); MONO # 0.4 10^3/uL (0.0-0.8); MONO % 10.7 % (2.0-8.0); NEUTROPHILS # 1.6 10^3/uL (1.5-8.5); NEUTROPHILS % 48.2 % (36.0-66.0); PLATELET COUNT, AUTOMATED 220 10^3/uL (150-450)
== END ==
LOC: M LAB 08:05
PROVIDERS: ATTEND Family Medicine
DX: D64.9 Anemia, unspecified (principal)

== ENCOUNTER → 2024-10-17 | Outpatient (REF) | payer BC ==
[2024-10-17 19:17] LABS: BASO # 0.0 10^3/uL (0.0-0.2); BASO % 1.3 % (0.0-1.0); EOS # 0.0 10^3/uL (0.0-0.5); EOS % 0.6 % (0.0-3.0); LYMPH # 1.5 10^3/uL (1.5-5.0); LYMPH % 49.2 % (24.0-44.0); MONO # 0.3 10^3/uL (0.0-0.8); MONO % 9.1 % (2.0-8.0); NEUTROPHILS # 1.2 10^3/uL (1.5-8.5); NEUTROPHILS % 39.8 % (36.0-66.0); PLATELET COUNT, AUTOMATED 219 10^3/uL (150-450)
[2024-10-17 19:20] LABS: IRON (FE) 152 UG/DL (50-170); PERCENT SATURATION 42.7 % (13.2-45.0)
[2024-10-17 19:21] LABS: ALT/SGPT 19 U/L (7.0-40); AST/SGOT 20 U/L (<34); CALCIUM LEVEL 9.5 MG/DL (8.3-10.6); CARBON DIOXIDE LEVEL 28 MMOL/L (20-31); CHLORIDE LEVEL 105 MMOL/L (98-107); CHOLESTEROL LEVEL 260 MG/DL (<200); CHOLESTEROL RISK RATIO 3.22 (<5); CREATININE FOR GFR 0.69 MG/DL (0.55-1.30); GLOMERULAR FILTRATION RATE > 90.0 (>45); LDL CHOLESTEROL 164.2 MG/DL (<100); NON-HDL-C 179.4 MG/DL; POTASSIUM SERUM 4.2 MMOL/L (3.5-5.1); SODIUM LEVEL 143 MMOL/L (136-145); TRIGLYCERIDES LEVEL 76 MG/DL (<150)
[2024-10-17 19:22] LABS: FREE T4 0.98 NG/DL (0.89-1.76)
[2024-10-17 19:23] LABS: TOTAL 25(OH) VITAMIN D 52.3 NG/ML (20.0-100.0); VITAMIN B12 LEVEL 563 PG/ML (211-911)
[2024-10-17 19:34] LABS: ESTIMATED AVERAGE GLUCOSE 108.0 MG/DL (60-110)
== END ==
LOC: M SFHCLERA 10:25
PROVIDERS: ATTEND Student in an Organized Health Care Education/Training Program
DX: Z00.00 Encounter for general adult medical examination without abnormal findings (principal); R53.83 Other fatigue

== ENCOUNTER → 2024-12-15 | Outpatient (REF) | payer BC | LOC: M LAB REF 19:04 | DX: R06.2 Wheezing (principal) ==

== ENCOUNTER → 2024-12-15 | Outpatient (REF) | payer BC | LOC: M SFHCPLAZ 17:21 | PROVIDERS: ATTEND Family Medicine | DX: Z53.9 Procedure and treatment not carried out, unspecified reason (principal) ==

== ENCOUNTER → 2024-12-16 | Outpatient (REF) | payer BC | LOC: M LAB REF 09:06 | DX: R06.2 Wheezing (principal) ==

== ENCOUNTER → 2024-12-16 | Outpatient (CLI) | payer BC | LOC: M LAB 08:29 | DX: J22 Unspecified acute lower respiratory infection (principal); R91.8 Other nonspecific abnormal finding of lung field ==

== ENCOUNTER → 2024-12-22 | Outpatient (CLI) | payer BC | LOC: M WHC 10:15 | PROVIDERS: ATTEND Student in an Organized Health Care Education/Training Program | DX: Z12.31 Encounter for screening mammogram for malignant neoplasm of breast (principal); R92.323 Mammographic fibroglandular density, bilateral breasts ==

== ENCOUNTER → 2025-01-04 | Outpatient (CLI) | payer BC ==
[2025-01-04 08:39] LABS: BASO # 0.0 10^3/uL (0.0-0.2); BASO % 1.4 % (0.0-1.0); EOS # 0.1 10^3/uL (0.0-0.5); EOS % 1.8 % (0.0-3.0); LYMPH # 1.4 10^3/uL (1.5-5.0); LYMPH % 49.3 % (24.0-44.0); MONO # 0.3 10^3/uL (0.0-0.8); MONO % 9.9 % (2.0-8.0); NEUTROPHILS # 1.1 10^3/uL (1.5-8.5); NEUTROPHILS % 37.6 % (36.0-66.0); PLATELET COUNT, AUTOMATED 229 10^3/uL (150-450)
[2025-01-04 09:01] LABS: C REACTIVE PROTEIN QUANTITATIV < 0.50 MG/DL (<1.0)
[2025-01-04 09:02] LABS: ALT/SGPT 16 U/L (7.0-40); AST/SGOT 17 U/L (<34); CALCIUM LEVEL 9.3 MG/DL (8.3-10.6); CARBON DIOXIDE LEVEL 28 MMOL/L (20-31); CHLORIDE LEVEL 106 MMOL/L (98-107); CREATININE FOR GFR 0.70 MG/DL (0.55-1.30); GLOMERULAR FILTRATION RATE > 90.0 (>45); POTASSIUM SERUM 4.2 MMOL/L (3.5-5.1); RHEUMATOID FACTOR QUANT 3.8 IU/ML (<14); SODIUM LEVEL 144 MMOL/L (136-145)
== END ==
LOC: M LAB 07:57
PROVIDERS: ATTEND Student in an Organized Health Care Education/Training Program
DX: R53.83 Other fatigue (principal)